=== PATIENT | female | born 1975 | race Caucasian/White ===

== ENCOUNTER → 2016-10-27 | Outpatient (REF) | payer BC ==
[2016-10-27 11:53] LABS: BASO % 0.5 % (0.0-1.0); EOS # 0.1 K/mm3 (0.0-0.50); EOS % 1.4 % (0.0-3.0); LARGE UNSTAINED CELL # 0.1 K/mm3 (0.0-0.4); LARGE UNSTAINED CELL % 1.4 % (0.0-4.0); LYMPH # 1.6 K/mm3 (1.5-4.5); LYMPH % 15.8 % (24.0-44.0); MEAN CORPUSCULAR HEMOGLOBIN 29.1 pg (27.0-33.0); MEAN CORPUSCULAR HGB CONC 34.4 g/dl (32.0-36.5); MEAN CORPUSCULAR VOLUME 84.4 fl (80.0-96.0); MONO # 0.5 K/mm3 (0.0-0.8); MONO % 5.2 % (0.0-5.0); NEUTROPHILS # 7.6 K/mm3 (1.8-7.7); NEUTROPHILS % 75.7 % (36.0-66.0); PLATELET COUNT, AUTOMATED 301 k/mm3 (150-450); RED CELL DISTRIBUTION WIDTH 13.3 % (11.5-14.5)
[2016-10-27 12:09] LABS: ALT/SGPT 14 U/L (12-78); ANION GAP 12 MEQ/L (8-16); AST/SGOT 9 U/L (15-37); BLOOD UREA NITROGEN 15 MG/DL (7-18); CALCIUM LEVEL 9.3 MG/DL (8.5-10.1); CARBON DIOXIDE LEVEL 25 MEQ/L (21-32); CHLORIDE LEVEL 104 MEQ/L (98-107); CREATININE FOR GFR 1.08 MG/DL (0.55-1.02); GLOMERULAR FILTRATION RATE > 60.0 (>60); GLUCOSE, FASTING 82 MG/DL (70-105); POTASSIUM SERUM 3.8 MEQ/L (3.5-5.1); SODIUM LEVEL 141 MEQ/L (136-145)
[2016-10-27 12:10] LABS: ALBUMIN 3.6 GM/DL (3.2-5.2); ALKALINE PHOSPHATASE 93 U/L (45-117); BILIRUBIN,TOTAL 0.4 MG/DL (0.2-1.0); FREE T4 1.21 NG/DL (0.76-1.46); MAGNESIUM LEVEL 2.3 MG/DL (1.8-2.4); TOTAL PROTEIN 7.6 GM/DL (6.4-8.2)
[2016-10-27 13:35] LABS: ERYTHROCYTE SEDIMENTATION RATE 73 mm/hr (0-20)
== END | disposition home or self-care (01) ==
LOC: M SFHCPLAZ 08:52
PROVIDERS: ATTEND Nurse Practitioner Family
DX: N61.0 Mastitis without abscess (principal); M79.7 Fibromyalgia; E03.9 Hypothyroidism, unspecified; K21.9 Gastro-esophageal reflux disease without esophagitis; E55.9 Vitamin D deficiency, unspecified

== ENCOUNTER → 2016-10-30 | Outpatient (CLI) | payer SELFPAY ==
[2016-10-30 14:41] LABS: BASO # 0.1 K/mm3 (0.0-0.2); BASO % 0.7 % (0.0-1.0); EOS % 0.1 % (0.0-3.0); LARGE UNSTAINED CELL # 0.1 K/mm3 (0.0-0.4); LARGE UNSTAINED CELL % 0.6 % (0.0-4.0); LYMPH # 1.5 K/mm3 (1.5-4.5); LYMPH % 10.4 % (24.0-44.0); MEAN CORPUSCULAR HEMOGLOBIN 28.4 pg (27.0-33.0); MEAN CORPUSCULAR HGB CONC 33.7 g/dl (32.0-36.5); MEAN CORPUSCULAR VOLUME 84.3 fl (80.0-96.0); MONO # 0.3 K/mm3 (0.0-0.8); MONO % 2.4 % (0.0-5.0); NEUTROPHILS # 11.8 K/mm3 (1.8-7.7); NEUTROPHILS % 85.7 % (36.0-66.0); PLATELET COUNT, AUTOMATED 382 k/mm3 (150-450); RED CELL DISTRIBUTION WIDTH 14.1 % (11.5-14.5); WHITE BLOOD COUNT 13.8 K/mm3 (4.0-10.0)
[2016-10-30 17:56] LABS: ERYTHROCYTE SEDIMENTATION RATE 44 mm/hr (0-20)
== END | disposition home or self-care (01) ==
LOC: M LAB 13:34
PROVIDERS: ATTEND Nurse Practitioner Family
DX: N61.0 Mastitis without abscess (principal)

== ENCOUNTER → 2016-10-30 | Outpatient (CLI) | payer BC, SELFPAY ==
--- NOTE | 2016-10-30 13:21 | REP ---
Digital diagnostic bilateral mammography with CAD and focused left breast sonography: History: Mastitis of the left breast. The patient reports that her pain and swelling are improving on antibiotic therapy. There is a past history of cyst drainage in the left breast. No comparison mammography. Findings: Breast parenchyma is heterogeneously quite dense in a pattern which may inhibit the sensitivity of mammography. Normal appearing lymph nodes are visible in each axilla. There is a dominant ill-defined density in the left superior mid breast at approximately 12 o'clock on the MLO view. This is seen with less confidence on the CC view but appears to be central. No skin change or microcalcification is observed. No definite mass lesion. Focused left breast sonogram findings: The left breast is examined in the 12 o'clock position. There is a 0.9 cm cyst at 12 o'clock with thin septation. Heterogeneous fibroglandular background echotexture is seen from 11 o'clock to 1 o'clock in the area scanned. Impression: BIRADS category 2 benign bilateral breast imaging. Repeat screening mammography recommended in 1 year. Clinical follow-up for patient's symptoms advised. This negative report should not dissuade one from biopsy of a mass depending on its clinical characteristics on physical exam. BI-RADS/ACR category 2 mammogram. Benign finding(s). Routine annual screening mammography (for women over age 40). This mammogram was interpreted with the aid of an FDA-approved computer-aided detection system. The patient states she had a clinical breast exam in October 2016. The patient letter being requested is M2. Signed by Bryson Rosales MD 10/30/2016 02:42 P
== END | disposition home or self-care (01) ==
LOC: M RAD 10:47
PROVIDERS: ATTEND Nurse Practitioner Family
DX: N61.0 Mastitis without abscess (principal)
CPT/HCPCS: 76642; G0204

== ENCOUNTER → 2016-11-17 | Outpatient (CLI) | payer BC ==
[2016-11-17 18:22] LABS: ANION GAP 9 MEQ/L (8-16); BLOOD UREA NITROGEN 12 MG/DL (7-18); CALCIUM LEVEL 9.1 MG/DL (8.5-10.1); CARBON DIOXIDE LEVEL 26 MEQ/L (21-32); CHLORIDE LEVEL 105 MEQ/L (98-107); CREATININE FOR GFR 0.98 MG/DL (0.55-1.02); GLOMERULAR FILTRATION RATE > 60.0 (>60); GLUCOSE, FASTING 78 MG/DL (70-105); POTASSIUM SERUM 4.1 MEQ/L (3.5-5.1); SODIUM LEVEL 140 MEQ/L (136-145)
[2016-11-17 18:39] LABS: BASO % 0.1 % (0.0-1.0); EOS # 0.2 K/mm3 (0.0-0.50); EOS % 2.6 % (0.0-3.0); LARGE UNSTAINED CELL # 0.1 K/mm3 (0.0-0.4); LARGE UNSTAINED CELL % 1.9 % (0.0-4.0); LYMPH # 1.7 K/mm3 (1.5-4.5); LYMPH % 24.2 % (24.0-44.0); MEAN CORPUSCULAR HEMOGLOBIN 27.9 pg (27.0-33.0); MEAN CORPUSCULAR HGB CONC 33.2 g/dl (32.0-36.5); MONO # 0.3 K/mm3 (0.0-0.8); MONO % 5.1 % (0.0-5.0); NEUTROPHILS # 4.4 K/mm3 (1.8-7.7); NEUTROPHILS % 66.2 % (36.0-66.0); PLATELET COUNT, AUTOMATED 227 k/mm3 (150-450); RED CELL DISTRIBUTION WIDTH 13.9 % (11.5-14.5); WHITE BLOOD COUNT 6.6 K/mm3 (4.0-10.0)
--- NOTE | 2016-11-17 18:52 | REP ---
PA and lateral chest: Comparison is 02/13/2011. The lung gonzalez are clear. The cardiac size is normal The baljit, mediastinum, and bony thorax are unremarkable. Impression: Negative PA and lateral chest. There is no interval Signed by Fausto Luke MD 11/17/2016 06:44 P
== END | disposition home or self-care (01) ==
LOC: M WUC 12:30
PROVIDERS: ATTEND Nurse Practitioner Family
DX: R05 Cough (principal)

== ENCOUNTER → 2017-08-20 | Outpatient (REF) | payer BC | LOC: M SFHCPLAZ 15:56 | PROVIDERS: ATTEND Nurse Practitioner Family | DX: M25.50 Pain in unspecified joint (principal) ==

== ENCOUNTER 2017-09-09 15:53 | Emergency (ER) | payer BC, OTHER ==
[~2017-09-09] VITALS: Ht 157.5 cm; Wt 118.6 kg
[2017-09-09 15:54] VITALS: BP 145/74
[2017-09-09] MEDS ORDERED: LEVO200T4 (16:13)
[2017-09-09] MEDS ORDERED: TYLE325T5 PO (16:13)
[2017-09-09] MEDS ORDERED: ADACEL/BOOSTRIX VACCINE (DIPHTH/PERTUSS/ACELL/TETANUS)0.5ML SYR (90715) IM ONE (17:30)
[2017-09-09] MEDS ORDERED: AUGM875T28 PO (18:08)
[2017-09-09 18:13] LABS: BASO % 0.3 % (0.0-1.0); EOS # 0.1 10^3/uL (0.0-0.50); EOS % 1.6 % (0.0-3.0); IMMATURE GRANULOCYTE % 0.3 % (0-0); LYMPH # 2.3 10^3/uL (1.5-4.5); LYMPH % 26.3 % (24.0-44.0); MEAN CORPUSCULAR HEMOGLOBIN 27.8 pg (27.0-33.0); MEAN CORPUSCULAR HGB CONC 32.2 g/dl (32.0-36.5); MEAN CORPUSCULAR VOLUME 86.4 fl (80.0-96.0); MONO # 0.6 10^3/uL (0.0-0.8); MONO % 7.1 % (0.0-5.0); NEUTROPHILS # 5.7 10^3/uL (1.8-7.7); NEUTROPHILS % 64.4 % (36.0-66.0); PLATELET COUNT, AUTOMATED 308 10^3/uL (150-450); RED CELL DISTRIBUTION WIDTH 13.8 % (11.5-14.5); WHITE BLOOD COUNT 8.9 10^3/uL (4.0-10.0)
[2017-09-09 18:29] LABS: CONTROL LINE HCG INT CTR LINE PRESENT
[2017-09-09 18:35] LABS: ALBUMIN 3.7 GM/DL (3.2-5.2); ALBUMIN/GLOBULIN RATIO 0.88 (1.00-1.93); ALKALINE PHOSPHATASE 80 U/L (45-117); ALT/SGPT 18 U/L (12-78); ANION GAP 7 MEQ/L (8-16); AST/SGOT 10 U/L (7-37); BILIRUBIN,TOTAL 0.2 MG/DL (0.2-1.0); BLOOD UREA NITROGEN 20 MG/DL (7-18); CALCIUM LEVEL 9.2 MG/DL (8.5-10.1); CARBON DIOXIDE LEVEL 26 MEQ/L (21-32); CHLORIDE LEVEL 106 MEQ/L (98-107); CREATININE FOR GFR 0.93 MG/DL (0.55-1.02); GLOMERULAR FILTRATION RATE > 60.0 (>58); GLUCOSE, FASTING 73 MG/DL (70-105); POTASSIUM SERUM 4.1 MEQ/L (3.5-5.1); SODIUM LEVEL 139 MEQ/L (136-145); TOTAL PROTEIN 7.9 GM/DL (6.4-8.2)
[2017-09-09 18:48] LABS: CONTROL LINE INT CTR LINE PRESENT
[2017-09-10 10:10] LABS: HEPATITIS B SURFACE ANTIBODY POSITIVE (POSITIVE)
== END 2017-09-09 18:41 | disposition home or self-care (01) ==
LOC: M ED 15:53
DX: S41.032A Puncture wound without foreign body of left shoulder, initial encounter (principal); Y04.1XXA Assault by human bite, initial encounter; Y92.219 Unspecified school as the place of occurrence of the external cause; Y93.89 Activity, other specified; Y99.0 Civilian activity done for income or pay; E03.9 Hypothyroidism, unspecified; Z79.899 Other long term (current) drug therapy; Z87.891 Personal history of nicotine dependence

== ENCOUNTER → 2017-12-14 | Outpatient (REF) | payer OTHER | LOC: M SFHCPLAZ 16:17 | DX: E03.9 Hypothyroidism, unspecified (principal); E55.9 Vitamin D deficiency, unspecified ==

== ENCOUNTER → 2017-12-22 | Outpatient (REF) | payer SELFPAY, BC ==
[2017-12-22 17:42] LABS: TOTAL 25(OH) VITAMIN D 23.8 NG/ML (30.0-100.0)
[2017-12-22 17:44] LABS: FREE T4 1.07 NG/DL (0.76-1.46)
== END ==
LOC: M LABNEURO 15:17
DX: E03.9 Hypothyroidism, unspecified (principal); E55.9 Vitamin D deficiency, unspecified
CPT/HCPCS: 84443

== ENCOUNTER → 2018-07-01 | Outpatient (REF) | payer BC | LOC: M SFHCPLAZ 17:08 | DX: N39.0 Urinary tract infection, site not specified (principal); R30.0 Dysuria | CPT/HCPCS: 87086 ==

== ENCOUNTER 2018-07-22 17:26 | Emergency (ER) | payer BC ==
[2018-07-22] MEDS: ASPIRIN 81 MG CHEW TABLET PO (18:29)
[2018-07-22] MEDS: NITROGLYCERIN 0.4 MG SUBL TABLET SL (18:29)
[2018-07-22 18:50] LABS: BASO % 0.4 % (0.0-1.0); EOS # 0.2 10^3/uL (0.0-0.50); HEMATOCRIT 38.6 % (36.0-47.0); HEMOGLOBIN 12.7 g/dl (12.0-15.5); IMMATURE GRANULOCYTE % 0.6 % (0-3.0); LYMPH # 2.5 10^3/uL (1.5-4.5); LYMPH % 23.6 % (24.0-44.0); MEAN CORPUSCULAR HEMOGLOBIN 27.8 pg (27.0-33.0); MEAN CORPUSCULAR HGB CONC 32.9 g/dl (32.0-36.5); MEAN CORPUSCULAR VOLUME 84.5 fl (80.0-96.0); MONO # 0.7 10^3/uL (0.0-0.8); MONO % 6.2 % (0.0-5.0); NEUTROPHILS # 7.2 10^3/uL (1.8-7.7); NEUTROPHILS % 67.2 % (36.0-66.0); PLATELET COUNT, AUTOMATED 276 10^3/uL (150-450); RED BLOOD COUNT 4.57 10^6/uL (4.00-5.40); RED CELL DISTRIBUTION WIDTH 14.2 % (11.5-14.5); WHITE BLOOD COUNT 10.7 10^3/uL (4.0-10.0)
[2018-07-22 19:02] LABS: PROTHROMBIN TIME 12.2 SECONDS (12.1-14.4)
[2018-07-22 19:20] LABS: ALBUMIN 3.6 GM/DL (3.2-5.2); ALBUMIN/GLOBULIN RATIO 0.97 (1.00-1.93); ALKALINE PHOSPHATASE 77 U/L (45-117); ALT/SGPT 16 U/L (12-78); ANION GAP 10 MEQ/L (8-16); AST/SGOT 11 U/L (7-37); BILIRUBIN,DIRECT < 0.1 MG/DL (0.0-0.2); BILIRUBIN,TOTAL 0.3 MG/DL (0.2-1.0); BLOOD UREA NITROGEN 18 MG/DL (7-18); CALCIUM LEVEL 9.1 MG/DL (8.5-10.1); CARBON DIOXIDE LEVEL 25 MEQ/L (21-32); CHLORIDE LEVEL 105 MEQ/L (98-107); CPK CREATINE PHOSPHOKINASE 109 U/L (26-192); CREATININE FOR GFR 1.08 MG/DL (0.55-1.30); GLOMERULAR FILTRATION RATE 59.5 (>58); GLUCOSE, FASTING 74 MG/DL (70-100); LIPASE 123 U/L (73-393); MB/CK RELATIVE INDEX 1.01 (< OR =4); POTASSIUM SERUM 3.8 MEQ/L (3.5-5.1); SODIUM LEVEL 140 MEQ/L (136-145); TOTAL PROTEIN 7.3 GM/DL (6.4-8.2); TROPONIN I < 0.02 NG/ML (< 0.10)
== END 2018-07-22 20:57 | disposition home or self-care (01) ==
LOC: M ED 17:26
DX: K21.0 Gastro-esophageal reflux disease with esophagitis (principal); E07.9 Disorder of thyroid, unspecified; Z79.899 Other long term (current) drug therapy
CPT/HCPCS: 71045

== ENCOUNTER 2018-08-24 10:34 | Emergency (ER) | payer BC | END 2018-08-24 12:51 | disposition home or self-care (01) | LOC: M ED 10:34 | DX: M54.42 Lumbago with sciatica, left side (principal); M51.37 Other intervertebral disc degeneration, lumbosacral region; M79.7 Fibromyalgia; Z87.891 Personal history of nicotine dependence; Z79.890 Hormone replacement therapy; Z79.899 Other long term (current) drug therapy | CPT/HCPCS: 72110 ==

== ENCOUNTER → 2018-09-14 | Outpatient (REF) | payer BC ==
[2018-09-14 13:09] LABS: FREE T4 1.65 NG/DL (0.76-1.46); THYROID STIMULATING HORMONE 0.265 uIU/ML (0.358-3.740); TOTAL 25(OH) VITAMIN D 34.5 NG/ML (30.0-100.0)
== END ==
LOC: M SFHCPLAZ 10:58
DX: E03.9 Hypothyroidism, unspecified (principal); E55.9 Vitamin D deficiency, unspecified

== ENCOUNTER → 2018-11-21 | Outpatient (REF) | payer BC ==
[~2018-11-21] MED LIST: AUGM875T28 PO; LEVO200T4; LEVO25TA5 PO; PROT1TAB2 PO; ROBA500T PO; TYLE325T5 PO
[2018-11-21 19:20] LABS: FREE T4 1.21 NG/DL (0.76-1.46); THYROID STIMULATING HORMONE 1.53 uIU/ML (0.358-3.740)
== END ==
LOC: M SFHCPLAZ 13:31
PROVIDERS: ATTEND Nurse Practitioner Family
DX: E03.9 Hypothyroidism, unspecified (principal)

== ENCOUNTER → 2019-11-10 | Outpatient (REF) | payer BC ==
[2019-11-10 12:35] LABS: FREE T4 1.92 NG/DL (0.76-1.46); THYROID STIMULATING HORMONE 0.032 uIU/ML (0.358-3.740)
== END ==
LOC: M SFHCPLAZ 10:08
PROVIDERS: ATTEND Nurse Practitioner Family
DX: E03.9 Hypothyroidism, unspecified (principal)

== ENCOUNTER → 2019-12-04 | Outpatient (REF) | payer BC ==
[2019-12-04 18:31] LABS: FREE T4 1.44 NG/DL (0.76-1.46); THYROID STIMULATING HORMONE 0.099 uIU/ML (0.358-3.740)
== END ==
LOC: M LABNEURO 13:07
PROVIDERS: ATTEND Nurse Practitioner Family
DX: E03.9 Hypothyroidism, unspecified (principal)

== ENCOUNTER → 2020-01-09 | Outpatient (REF) | payer OTHER ==
[2020-01-09 14:33] LABS: BLOOD UREA NITROGEN 12 MG/DL (7-18); CALCIUM LEVEL 9.2 MG/DL (8.5-10.1); CARBON DIOXIDE LEVEL 30 MEQ/L (21-32); CHLORIDE LEVEL 104 MEQ/L (98-107); CREATININE FOR GFR 0.93 MG/DL (0.55-1.30); FREE T4 1.44 NG/DL (0.76-1.46); GLOMERULAR FILTRATION RATE > 60.0 (>58); GLUCOSE, FASTING 83 MG/DL (70-100); POTASSIUM SERUM 4.3 MEQ/L (3.5-5.1); SODIUM LEVEL 137 MEQ/L (136-145); TOTAL 25(OH) VITAMIN D 22.2 NG/ML (30.0-100.0)
== END ==
LOC: M SFHCPLAZ 11:14
PROVIDERS: ATTEND Nurse Practitioner Family
DX: E03.9 Hypothyroidism, unspecified (principal); E66.01 Morbid (severe) obesity due to excess calories; E55.9 Vitamin D deficiency, unspecified

== ENCOUNTER → 2020-02-12 | Outpatient (REF) | payer MEDICAID ==
[2020-02-12 10:18] LABS: FREE T4 1.53 NG/DL (0.76-1.46); THYROID STIMULATING HORMONE 0.121 uIU/ML (0.358-3.740)
== END ==
LOC: M PLALAB 08:40
PROVIDERS: ATTEND Nurse Practitioner Family
DX: E03.9 Hypothyroidism, unspecified (principal)

== ENCOUNTER → 2020-08-14 | Outpatient (CLI) | payer MEDICAID, OTHER ==
[2020-08-14 14:15] LABS: BASO % 0.3 % (0.0-1.0); EOS # 0.2 10^3/uL (0.0-0.5); HEMOGLOBIN 13.4 g/dl (12.0-15.5); LYMPH # 1.9 10^3/uL (1.5-5.0); LYMPH % 19.5 % (24.0-44.0); MEAN CORPUSCULAR HEMOGLOBIN 27.8 pg (27.0-33.0); MEAN CORPUSCULAR HGB CONC 31.9 g/dl (32.0-36.5); MEAN CORPUSCULAR VOLUME 87.1 fl (80.0-96.0); MONO # 0.7 10^3/uL (0.0-0.8); MONO % 6.8 % (0.0-5.0); NEUTROPHILS % 70.9 % (36.0-66.0); PLATELET COUNT, AUTOMATED 314 10^3/uL (150-450); RED BLOOD COUNT 4.82 10^6/uL (4.00-5.40); WHITE BLOOD COUNT 9.9 10^3/uL (4.0-10.0)
[2020-08-14 14:27] LABS: BLOOD UREA NITROGEN 11 MG/DL (7-18); CALCIUM LEVEL 9.3 MG/DL (8.5-10.1); CARBON DIOXIDE LEVEL 27 MEQ/L (21-32); CHLORIDE LEVEL 106 MEQ/L (98-107); CREATININE FOR GFR 1.04 MG/DL (0.55-1.30); FREE T4 1.09 NG/DL (0.76-1.46); GLOMERULAR FILTRATION RATE > 60.0 (>58); GLUCOSE, FASTING 95 MG/DL (70-100); POTASSIUM SERUM 4.2 MEQ/L (3.5-5.1); SODIUM LEVEL 139 MEQ/L (136-145); TOTAL 25(OH) VITAMIN D 25.2 NG/ML (30.0-100.0)
[2020-08-14 14:31] LABS: AMORPHOUS SEDIMENT MODERATE (NEGATIVE); APPEARANCE, URINE TURBID (CLEAR); BACTERIA, URINE AUTO 1+ (NEGATIVE); BILIRUBIN, URINE AUTO NEGATIVE (NEGATIVE); BLOOD, URINE BLOOD 1+ (NEGATIVE); COLOR, URINE YELLOW (YELLOW); GLUCOSE, URINE (UA) AUTO NEGATIVE (NEGATIVE); KETONE, URINE AUTO NEGATIVE (NEGATIVE); LEUKOCYTE ESTERASE, URINE AUTO NEGATIVE (NEGATIVE); MUCUS, URINE SMALL (NEGATIVE); NITRITE, URINE AUTO NEGATIVE (NEGATIVE); PROTEIN, URINE AUTO NEGATIVE (NEGATIVE); RBC, URINE AUTO 0 /HPF (0-3); SPECIFIC GRAVITY URINE AUTO 1.024 (1.002-1.035); SQUAMOUS EPITHELIAL CELL UR AU 0 /HPF (0-6); WBC, URINE AUTO 0 /HPF (0-3)
== END ==
LOC: M PLALAB 10:08
PROVIDERS: ATTEND Nurse Practitioner Family
DX: J01.90 Acute sinusitis, unspecified (principal); R30.0 Dysuria; E03.9 Hypothyroidism, unspecified; E55.9 Vitamin D deficiency, unspecified

== ENCOUNTER → 2020-11-06 | Outpatient (REF) | payer OTHER ==
[~2020-11-06] MED LIST changes: +CETI-24; +IBUP200T45 PO; +LEVO150T7
[2020-11-06 18:01] LABS: HEMATOCRIT 37.9 % (36.0-47.0); HEMOGLOBIN 11.8 g/dl (12.0-15.5); MEAN CORPUSCULAR HEMOGLOBIN 27.2 pg (27.0-33.0); MEAN CORPUSCULAR HGB CONC 31.1 g/dl (32.0-36.5); MEAN CORPUSCULAR VOLUME 87.3 fl (80.0-96.0); PLATELET COUNT, AUTOMATED 299 10^3/uL (150-450); RED BLOOD COUNT 4.34 10^6/uL (4.00-5.40); WHITE BLOOD COUNT 10.5 10^3/uL (4.0-10.0)
[2020-11-06 18:02] LABS: BLOOD UREA NITROGEN 17 MG/DL (7-18); CALCIUM LEVEL 9.5 MG/DL (8.5-10.1); CARBON DIOXIDE LEVEL 29 MEQ/L (21-32); CHLORIDE LEVEL 106 MEQ/L (98-107); CREATININE FOR GFR 1.04 MG/DL (0.55-1.30); FERRITIN 38 NG/ML (8-252); FREE T4 1.06 NG/DL (0.76-1.46); GLOMERULAR FILTRATION RATE > 60.0 (>58); GLUCOSE, FASTING 70 MG/DL (70-100); POTASSIUM SERUM 4.2 MEQ/L (3.5-5.1); SODIUM LEVEL 141 MEQ/L (136-145)
== END ==
LOC: M PLALAB 15:23
PROVIDERS: ATTEND Nurse Practitioner Family
DX: N92.1 Excessive and frequent menstruation with irregular cycle (principal)

== ENCOUNTER 2020-11-07 17:02 | Emergency (ER) | payer OTHER ==
[~2020-11-07] VITALS: Ht 157.5 cm; Wt 133.1 kg
[~2020-11-07 17:02] MED LIST changes: -CETI-24; -IBUP200T45 PO; -LEVO150T7
--- OUTSIDE RECORDS SUMMARY | 2020-11-07 17:09 | CCD ---
Author Author [facility] Organization [facility] Address Unknown Phone Unavailable Care Team Providers Care Finish Rolls Operator Name Role Phone Nay Blum Unavailable PROBLEMS Type Condition ICD9-CM Code [id number] Code Onset Dates Condition S tatus SNOMED Code Notes Problem Obstructive sleep apnea G47.33 Active 39514741 Problem Gastroesophageal reflux disease without esophagitis K21.9 Active 821346852 Problem Periodic limb movement disorder G47.61 Active 610579530 Problem Malaise and fatigue R53.81 Active 892862749 Problem Mixed hyperlipidemia E78.2 Active 669725835 Problem Irritable bowel syndrome with both constipation and diarrh ea K58.0 Active 36405039 Problem Migraine without status migrainosus, not intractable G43.909 Active 99594233 Problem Other allergic rhinitis J30.89 Active 34903416 Problem Vitamin D deficiency E55.9 Active 52156475 Problem Fibromyalgia syndrome M79.7 Active 224441964 Problem Mild intermittent asthma with exacerbation J45.21 Active 133448024 Problem Acquired hypothyroidism E03.9 Active 61119219 2 Problem Stomach upset K30 Active 923227939 Problem Asthma J45.909 Active 862520231 Problem Morbid obesity with body mass index of 40.0-49.9 E 66.01 Active 034602972 Problem Gastroesophageal reflux disease, esophagitis pre sence not specified K21.9 Active 604382525 Problem Asthma exacerbation J45.901 Active 593875602 Problem Cyst of left breast N60.02 Active 643175956 ALLERGIES Allergen (clinical drug ingredient) Drug/Non Drug Allergy do cumented on EMR Reaction Allergy Type Onset Date Status kiwi, tea tongue swelling, itchy mouth Non Drug Allergy Active Bananas Bloating, severe abdominal pain Non Drug Allerg y Active ENCOUNTERS from 1977 to 2020-08-23 Encounter Location Date Provider Diagnosis [facility] Rene [address] [place] [id number] Aug, Nay Blum IMMUNIZATIONS Vaccine Route Administration Date Status Influenza (Denied) Unknown Oct 13, 2018 Others Influenza (18 yrs & older) Flublok IM Intramuscular Aug 14, 2020 Administered TDAP 0.5mL (Boostrix) IM Intramuscular February 16, 2013 Administe red Influenza (6mo & up) Fluzone IM Intramuscular Aug 19, 2011 Ad ministered SOCIAL HISTORY Tobacco Use: Social History Observation Description Date Details (start date - stop date) Never Smoker Sex Assigned At : Social History Observation Description Sex Assigned At Unknown Audit Question Answer Notes Total Score: 1 Interpretation: Alcohol Education Language: Question Answer Notes Languages spoken: Mongolian Advent: Question Answer Notes Advent 08 Confucianism Sexual Hx: Question Answer Notes Had sex in the last 12 months (vaginal, oral, or anal)? No LMP: 08/16/2017 Have you ever had an STD? Yes Other? Yes Chlamydia? Yes Drug and Alcohol Question Answer Notes Total Score: 0 Interpretation: No problems reported Alcohol Screening: Question Answer Notes Did you have a drink containing alcohol in the past year? Ye s Points 1 Interpretation Negative How often did you have six or more drinks on one occas ion in the past year? Never (0 points) How many drinks did you have on a typica l day when you were drinking in the past year? 1 or 2 (0 points) How often did you have a drink containing alcohol in t he past year? Monthly or less (1 point) BMI Care Goal Follow-Up Question Answer Notes Above Normal BMI Follow-Up Dietary management educatio n, guidance, and counseling, Giving encouragement to exercise Tobacco Use: Question Answer Notes Are you a: never smoker REASON FOR REFERRAL No Information VITAL SIGNS No information MEDICATIONS Medication SIG (Take, Route, Frequency, Duration) Start Date En d Date Status Nebulizer/Tubing/Mouthpiece 1 tubing for inhalation as needed 2009 Active Nebulizer 1 1 for inhalation as needed Sep, N ot-Taking Amoxicillin-Pot Clavulanate 875-125 MG 1 tablet Orally every 12 hrs for 10 day(s) Jan, Active Cetirizine HCl 10 MG 1 tablet Orally Once a day for 30 Days Active Albuterol Sulfate (2.5 MG/3ML) 0.083% nebs Inhalation every 4 hrs as needed for 30 Days Sep, Active Levothyroxine Sodium 150 MCG 1 tablet in the morning o n an empty stomach Orally Once a day for 90 day(s) February, Active Fluconazole 150 MG 1 tablet Orally Daily as needed for 2 days 2019 Active Ibuprofen 600 MG 1 tablet with food Orally Three times a day as needed for pain May, Active Ventolin HFA 108 (90 Base) MCG/ACT 2 puffs Inhalation every 4 hours as needed for 30 Days Active Drisdol 38924 UNIT 1 capsule Orally once a week with a meal for 90 days Active Calcium 600 + D 600-400 MG-UNIT 1 tablet Orally daily Not-Taking Flonase 50 MCG/ACT 1 -2 puffs in each nostril Nasally Once a day for 30 Days Active PROCEDURES No Information RESULTS No Results REASON FOR VISIT no improvement MEDICAL (GENERAL) HISTORY Type Description Date Medical History asthma Medical History allergies Medical History Hypothyroidism Medical History goiter Medical History Esophageal reflux Medical History sinusitis Medical History migraine headaches Medical History sleep apnea - CPAP per pulmonary Medical History Plantar fascial fibromatosis Surgical History mole removal left breast Surgical History colposcopy with biopsies Pos HPV 07/13 Goals Section No Information Health Concerns No Information MEDICAL EQUIPMENT No Information MENTAL STATUS No Information FUNCTIONAL STATUS No Information ASSESSMENTS No Information PLAN OF TREATMENT Next Appt Details Provider Name:Marianela Loja 2020-09-12 03:3 0:00 PM, [address] [place], [address], Insurance Providers Payer Name Payer Address Payer Phone Insured Name Patient Relati onship to Insured Coverage Start Date Coverage End Date [facility] [facility] [place] [address] [facility] [phone] NAYELY BURNETTE self
--- OUTSIDE RECORDS SUMMARY | 2020-11-07 17:09 | CCD ---
Author Author [facility] Organization [facility] Address Unknown Phone Unavailable Care Team Providers Care Rig Hand Name Role Phone Nay Blum Unavailable PROBLEMS Type Condition ICD9-CM Code [id number] Code Onset Dates Condition S tatus SNOMED Code Notes Problem Obstructive sleep apnea G47.33 Active 65049812 Problem Gastroesophageal reflux disease without esophagitis K21.9 Active 687436811 Problem Periodic limb movement disorder G47.61 Active 043504009 Problem Malaise and fatigue R53.81 Active 206891643 Problem Mixed hyperlipidemia E78.2 Active 661953886 Problem Irritable bowel syndrome with both constipation and diarrh ea K58.0 Active 59143783 Problem Migraine without status migrainosus, not intractable G43.909 Active 56311028 Problem Other allergic rhinitis J30.89 Active 84927644 Problem Vitamin D deficiency E55.9 Active 84776023 Problem Fibromyalgia syndrome M79.7 Active 897903128 Problem Mild intermittent asthma with exacerbation J45.21 Active 736329063 Problem Acquired hypothyroidism E03.9 Active 37786685 2 Problem Stomach upset K30 Active 250808848 Problem Asthma J45.909 Active 236003533 Problem Morbid obesity with body mass index of 40.0-49.9 E 66.01 Active 465953899 Problem Gastroesophageal reflux disease, esophagitis pre sence not specified K21.9 Active 261513525 Problem Asthma exacerbation J45.901 Active 510251080 Problem Cyst of left breast N60.02 Active 460849567 ALLERGIES Allergen (clinical drug ingredient) Drug/Non Drug Allergy do cumented on EMR Reaction Allergy Type Onset Date Status kiwi, tea tongue swelling, itchy mouth Non Drug Allergy Active Bananas Bloating, severe abdominal pain Non Drug Allerg y Active ENCOUNTERS from 1977 to 2020-09-10 Encounter Location Date Provider Diagnosis [facility] Rene [facility] [place] [address] Aug, Nay Blum Acute sinusitis, recurrence not specifie d, unspecified location J01.90 and Stomach upset K30 IMMUNIZATIONS Vaccine Route Administration Date Status Influenza [...] Education Language: Question Answer Notes Languages spoken: Telugu Sikhism: Question Answer Notes Sikhism 08 Scientologist Sexual Hx: Question Answer Notes Had sex [...] REASON FOR REFERRAL No Information VITAL SIGNS Weight 289 lbs Aug, Height 62 in Aug, BMI 52.85 kg/m2 Aug, Heart Rate 87 /min Aug, Respiratory Rate 18 /min Aug, Temperature 97.5 degrees Fahrenheit Aug, Oximetry 99 Aug, Blood pressure systolic 129 mm Hg Aug, Blood pressure diastolic 76 mm Hg Aug, MEDICATIONS Medication SIG (Take, Route, Frequency, Duration) Notes Start Da te End Date Status Nebulizer/Tubing/Mouthpiece 1 tubing for inhalation as needed Sep, Active Nebulizer 1 1 for inhalation as needed Sep, Not-Taking Amoxicillin-Pot Clavulanate 875-125 MG 1 tablet Orally [...] Orally Daily as needed for 2 days Jan, Active Ibuprofen 600 MG 1 tablet with food Orally Three times a day as needed for pain May, Active Ventolin HFA 108 (90 Base) MCG/ACT 2 puffs Inhalation every 4 hours as needed for 30 Days Active Drisdol 56235 UNIT 1 capsule Orally once a week with a meal for 90 d ays Active Calcium 600 + D 600-400 MG-UNIT 1 tablet Orally daily Not-Taking Flonase 50 MCG/ACT 1 -2 puffs in each nostril Nasally Once a day for 30 Days Active PROCEDURES No Information RESULTS No Results REASON FOR VISIT No Information MEDICAL (GENERAL) HISTORY Type Description Date Medical [...] No Information FUNCTIONAL STATUS No Information ASSESSMENTS Encounter Date Diagnosis Assessment Notes Treatment Notes Treatm ent Clinical Notes Aug, Acute sinusitis, recurrence not specified, unspecified location (ICD-10 - J01.90) sinusitis; improving Stomach upset likely antibiotic related. Monitor, mild diet, yogurt. Pt will call next week if sxs worsen/persist Aug, Stomach upset (ICD-10 - K30) PLAN OF TREATMENT Treatment Notes Assessment Notes Clinical Notes Acute sinusitis, recurrence not specified, unspecified location sinusitis; improvingStomach upset likely antibiotic related.Monitor, mild diet, yogurt.Pt will call next week if sxs worsen/persist Next Appt Details Provider Name:Marianela Loja, 2020-09-12 03:3 0:00 PM, [address] [place], [address], Insurance Providers Payer Name Payer Address Payer Phone Insured Name Patient Relati onship to Insured Coverage Start Date Coverage End Date [facility]AN [facility] [address] [facility] [phone] NAYELY BURNETTE self
--- OUTSIDE RECORDS SUMMARY | 2020-11-07 17:10 | CCD ---
Author Author [facility] Organization [facility] Address Unknown Phone Unavailable Care Team Providers Care Head Mechanic Name Role Phone Marianela Loja Unavailable PROBLEMS Type Condition ICD9-CM Code [id number] Code Onset Dates Condition S tatus SNOMED Code Notes Problem Periodic limb movement disorder G47.61 Active 436737138 Problem Obstructive sleep apnea G47.33 Active 52145498 Problem Mixed hyperlipidemia E78.2 Active 464136433 Problem Gastroesophageal reflux disease without esophagitis K21.9 Active 795768329 Problem Migraine without status migrainosus, not intractable G43.909 Active 96004533 Problem Malaise and fatigue R53.81 Active 767806293 Problem Acquired hypothyroidism E03.9 Active 67278307 2 Problem Other allergic rhinitis J30.89 Active 02833095 Problem Vitamin D deficiency E55.9 Active 06480658 Problem Cyst of left breast N60.02 Active 243948498 Problem Asthma J45.909 Active 244856452 Problem Mild intermittent asthma with exacerbation J45.21 Active 754053063 Problem Irritable bowel syndrome with both constipation and diarrh ea K58.0 Active 24248335 Problem Fibromyalgia syndrome M79.7 Active 139832809 Problem Morbid obesity with body mass index of 40.0-49.9 E 66.01 Active 125916478 Problem Gastroesophageal reflux disease, esophagitis pre sence not specified K21.9 Active 514436093 Problem Asthma exacerbation J45.901 Active 663505854 ALLERGIES Allergen (clinical drug ingredient) Drug/Non Drug Allergy do cumented on EMR Reaction Allergy Type Onset Date Status kiwi, tea tongue swelling, itchy mouth Non Drug Allergy Active Bananas Bloating, severe abdominal pain Non Drug Allerg y Active ENCOUNTERS from 1977 to 2020-08-19 Encounter Location Date Provider Diagnosis [facility] Rene [facility] [place] [address] Aug, 020 Marianela Loja Acute non-recurrent sinusitis, unspecified location J01.90 ; Mild intermittent asthma with exacerbation J45.21 ; Other allergic rhinitis J30.89 ; Dysuria R30.0 ; Acquired hypothyroidism E03.9 ; Vitamin D deficiency E55.9 and Encounter for immunization Z23 IMMUNIZATIONS Vaccine Route Administration Date Status Influenza [...] Education Language: Question Answer Notes Languages spoken: Fijian Anglican: Question Answer Notes Anglican 08 Tenriism Sexual Hx: Question Answer Notes Had sex [...] FOR REFERRAL No Information VITAL SIGNS Weight 292 lbs Aug, Height 62 in Aug, BMI 53.40 kg/m2 Aug, Heart Rate 88 /min Aug, Respiratory Rate 20 /min Aug, Temperature 97.2 degrees Fahrenheit Aug, Oximetry 97 04 Aug, 2020 Blood pressure systolic 140 mm Hg Aug, Blood pressure diastolic 80 mm Hg Aug, MEDICATIONS Medication SIG (Take, Route, Frequency, Duration) Start Date En d Date Status Flonase 50 MCG/ACT 1 -2 puffs in each nostril Nasally Once a day for 30 Days Active Fluconazole 150 MG 1 tablet Orally Daily as needed for 2 days 2019 Active Levothyroxine Sodium 150 MCG 1 tablet in the morning o n an empty stomach Orally Once a day for 90 day(s) February, Active Drisdol 20086 UNIT 1 capsule Orally once a week with a meal for 90 days Active Ibuprofen 600 MG 1 tablet with food Orally Three times a day as needed for pain May, Active Nebulizer/Tubing/Mouthpiece 1 tubing for inhalation as needed 2009 Active Nebulizer 1 1 for inhalation as needed Sep, N ot-Taking Amoxicillin-Pot Clavulanate 875-125 MG 1 tablet Orally every 12 hrs for 10 day(s) Jan, Active Albuterol Sulfate (2.5 MG/3ML) 0.083% nebs Inhalation every 4 hrs as needed for 30 Days Sep, Active Cetirizine HCl 10 MG 1 tablet Orally Once a day for 30 Days Active Ventolin HFA 108 (90 Base) MCG/ACT 2 puffs Inhalation every 4 hours as needed for 30 Days Active Calcium 600 + D 600-400 MG-UNIT 1 tablet Orally daily Not-Taking PROCEDURES Procedure Date Ordered Result Body Site Immunization: Flublok Quadrivalent (18 years & older) 0.5mL IM (Influenza) 2020-08-14 N/A RESULTS REASON FOR VISIT follow up/flu shot - no labs done MEDICAL (GENERAL) HISTORY Type Description Date Medical [...] STATUS No Information ASSESSMENTS Encounter Date Diagnosis Notes Aug, Encounter for immunization (ICD-10 - Z23 ) Aug, Dysuria (ICD-10 - R30.0) Aug, Vitamin D deficiency (ICD-10 - E55.9) Aug, Acquired hypothyroidism (ICD-10 - E03.9) Aug, Acute non-recurrent sinusiti s, unspecified location (ICD-10 - J01.90) Aug, Other allergic rhinitis (ICD-10 - J30.89 ) Aug, Mild intermittent asthma with exacerbati on (ICD-10 - J45.21) PLAN OF TREATMENT Medication Medication Name Sig Start Date Stop Date Flonase 50 MCG/ACT 1 -2 puffs in each nostril Nasally Once a day for 30 Days Cetirizine HCl 10 MG 1 tablet Orally Once a day for 30 Days Ventolin HFA 108 (90 Base) MCG/ACT 2 puffs Inhalation every 4 hours as needed for 30 Days Amoxicillin-Pot Clavulanate 875-125 MG 1 tablet Orally every 12 hrs for 10 day(s) Jan, Fluconazole 150 MG 1 tablet Orally Daily as needed for 2 days Jan, Treatment Notes Assessment Notes Clinical Notes Acute non-recurrent sinusitis, unspecified location *Advised and Educated on administration and side effects of meds prescribed and patient verbalized understanding of the same., supportive measures for symptom relief, follow up if symptoms worsen or not improved with treatment. Off work note until 08/19/20 Next Appt Details 4 Weeks(30min) Reason:f/u after labs Provider Name:Marianela Loja 2020-09-12 03:3 0:00 PM, [address] [place], [address], Follow Up:4 Weeks(30min)f/u after labs Insurance Providers Payer Name Payer Address Payer Phone Insured Name Patient Relati onship to Insured Coverage Start Date Coverage End Date [facility] [address] [facility] [id number] NAYELY BURNETTE self
--- OUTSIDE RECORDS SUMMARY | 2020-11-07 17:10 | CCD ---
Author Author [facility] Address Unknown Phone Unavailable Support Name Relationship Address Phone [facility] Next Of Kin [address] [place] [address] HEATH LANG Next Of Kin [address] [place] [address] Heath Lang [facility] [address] [phone] Re-disclosure Warning The records that you are about to access may contain information from federally-assisted alcohol or drug abuse programs. If such information is present, then the following federally mandated warning applies: This information has been disclosed to you from records protected by federal confidentiality rules (42 CFR part 2). The federal rules prohibit you from making any further disclosure of this information unless further disclosure is expressly permitted by the written consent of the person to whom it pertains or as otherwise permitted by 42 CFR part 2. A general authorization for the release of medical or other information is NOT sufficient for this purpose. The Federal rules restrict any use of the information to criminally investigate or prosecute any alcohol or drug abuse patient.The records that you are about to access may contain highly sensitive health information, the redisclosure of which is protected by Article 27-F of the [facility] Public Health law. If you continue you may have access to information: Regarding HIV / AIDS; Provided by facilities licensed or operated by the [facility] Office of Mental Health; or Provided by the [facility] Office for People With Developmental Disabilities. If such information is present, then the following [facility] mandated warning applies: This information has been disclosed to you from confidential records which are protected by state law. State law prohibits you from making any further disclosure of this information without the specific written consent of the person to whom it pertains, or as otherwise permitted by law. Any unauthorized further disclosure in violation of state law may result in a fine or half-way sentence or both. A general authorization for the release of medical or other information is NOT sufficient authorization for further disc losure. Allergies and Adverse Reactions Type Description Substance Reaction Status Data Source(s ) kiwi, tea kiwi, tea kiwi, tea tongue swelling, itchy mouth Active eCW1 ([facility]) Bananas Bananas Bananas Bloating, severe abdominal pain Act geena eCW1 ([facility]) kiwi, tea kiwi, tea kiwi, tea tongue swelling, itchy mouth Active eCW1 ([facility]) Bananas Bananas Bananas Bloating, severe abdominal pain Act geena eCW1 ([facility]) kiwi, tea kiwi, tea kiwi, tea tongue swelling, itchy mouth Active eCW1 ([facility]) Bananas Bananas Bananas Bloating, severe abdominal pain Act geena eCW1 ([facility]) kiwi, tea kiwi, tea kiwi, tea tongue swelling, itchy mouth Active eCW1 ([facility]) Bananas Bananas Bananas Bloating, severe abdominal pain Act geena eCW1 ([facility]) kiwi, tea kiwi, tea kiwi, tea tongue swelling, itchy mouth Active eCW1 ([facility]) Bananas Bananas Bananas Bloating, severe abdominal pain Act geena eCW1 ([facility]) Family History Family Member Name Family Member Gender Family Member Status Date o f Status Description Data Source(s) Unknown Unknown Problem MEDENT ([facility]) Unknown Female Diagnosis 08/05/2018 12:00:00 AM EDT NextGen ([facility]) Unknown Female Diagnosis 08/05/2018 12:00:00 AM EDT NextGen ([facility]) Unknown Female Diagnosis 08/05/2018 12:00:00 AM EDT NextGen ([facility]) Unknown Female Problem MEDENT ([facility] ) Unknown Female Problem MEDENT ([facility], ) Unknown Female Problem MEDENT ([facility], ) Unknown Female Problem MEDENT ([facility], ) Unknown Female Problem MEDENT ([facility], ) Encounters Encounter Providers Location Date Indications Data Source(s ) [place] [address] [facility] [address] 11/05/2020 12:00:00 AM EST eCW1 ([facility]) [place] [address] [facility] [address] 08/23/2020 12:00:00 AM EST eCW1 ([facility]) Unknown [address] [facility] [address] 08/21/2020 12:00:00 AM EST eCW1 ([facility]) [place]patient [address] [facility] [address] 08/14/2020 12:00:00 AM EST eCW1 ([facility]) [facility] [address] [place] [address], [place] [address] 04/22/2020 12:00:00 AM EDT eCW1 ([facility]) [facility] [address] [place] [address], [place] [address] 02/14/2020 12:00:00 AM EDT eCW1 ([facility]) [facility] [address] [place] [address], [place] [address] 01/19/2020 12:00:00 AM EDT eCW1 ([facility]) [facility] [address] [place] [address], [place] [address] 01/19/2020 12:00:00 AM EDT eCW1 ([facility]) [facility] [address] [place] [address], [place] [address] 01/09/2020 12:00:00 AM EDT eCW1 ([facility]) [address] [place] [address] 12/14/2019 12:00:00 AM EST [facility]CW1 [facility]) [facility] [address] [place] [address] [place] [address] 11/13/2019 12:00:00 AM EST eCW1 ([facility]) [facility] [place] [address] [facility] [address] 11/10/2019 12:00:00 AM EST eCW1 ([facility]) Immunizations Vaccine Date Status Description Data Source(s) influenza, recombinant, quadrIvalent,injectable, prese rvative free 08/14/2020 12:00:00 PM EST completed eCW1 ([facility]) influenza, recombinant, quadrIvalent,injectable, prese rvative free 08/14/2020 12:00:00 PM EST completed eCW1 ([facility]) influenza, recombinant, quadrIvalent,injectable, prese rvative free 08/14/2020 12:00:00 PM EST completed eCW1 ([facility]) influenza, recombinant, quadrIvalent,injectable, prese rvative free 08/14/2020 12:00:00 PM EST completed eCW1 ([facility]) Medications Medication Brand Name Start Date Product Form Dose Route Admi nistrative Instructions Pharmacy Instructions Status Indications Reaction Description Data Source(s) 150 mcg 09/19/2020 12:00:00 AM EST tablet 90 TAKE ONE TABLET BY MOUTH EVERY MORNING ON AN EMTPY STOMACH TAKE ONE TABLET BY MOUTH EVERY MORNING O N AN EMTPY STOMACH SOLD: 09/19/2020 [facility] 10 mg 08/14/2020 12:00:00 AM EST tablet 30 TAKE ONE TABLET BY MOUTH ONCE DAILY TAKE ONE TABLET BY MOUTH ONCE DAILY SOLD: 10/01/2020 [facility] 10 mg 08/14/2020 12:00:00 AM EST tablet 30 TAKE ONE TABLET BY MOUTH ONCE DAILY TAKE ONE TABLET BY MOUTH ONCE DAILY SOLD: 11/01/2020 [facility] Levothyroxine Sodium 0.15 MG Oral Tablet Levothyroxine Sodium 150 MCG Levothyroxine Sodium 150 MCG 02/14/2020 12:00:00 AM EDT active Levothyroxine Sodium 150 MCG eCW1 ([facility]) Levothyroxine Sodium 0.15 MG Oral Tablet Levothyroxine Sodium 150 MCG Levothyroxine Sodium 150 MCG 02/14/2020 12:00:00 AM EDT active 1 tablet in the morning on an empty stomach eCW1 ([facility]) Levothyroxine Sodium 0.15 MG Oral Tablet Levothyroxine Sodium 150 MCG Levothyroxine Sodium 150 MCG 02/14/2020 12:00:00 AM EDT active Levothyroxine Sodium 150 MCG eCW1 ([facility]) Levothyroxine Sodium 0.15 MG Oral Tablet Levothyroxine Sodium 150 MCG Levothyroxine Sodium 150 MCG 02/14/2020 12:00:00 AM EDT active Levothyroxine Sodium 150 MCG eCW1 ([facility]) 150 mcg 02/14/2020 12:00:00 AM EDT tablet 90 TAKE ONE TABLET BY MOUTH EVERY MORNING ON AN EMPTY STOMACH TAKE ONE TABLET BY MOUTH EVERY MORNING O N AN EMPTY STOMACH SOLD: 05/31/2020 [facility] 1,250 mcg (50,000 unit) 02/14/2020 12:00:00 AM EDT capsule 12 TAKE ONE CAPSULE BY MOUTH ONCE A WEEK WITH A MEAL TAKE ONE CAPSULE BY MOUTH ONCE A WEEK WITH A MEAL SOLD: 02/14/2020 [facility] 150 mcg 02/14/2020 12:00:00 AM EDT tablet 90 TAKE ONE TABLET BY MOUTH EVERY MORNING ON AN EMPTY STOMACH TAKE ONE TABLET BY MOUTH EVERY MORNING O N AN EMPTY STOMACH SOLD: 02/14/2020 [facility] 90 mcg/actuation 02/14/2020 12:00:00 AM EDT HFA aerosol inha ler 18 INHALE 2 PUFFS BY MOUTH EVERY 4 HOURS NEEDED INHALE 2 PUFFS BY MOUTH EVERY 4 HOURS NEEDED SOLD: 02/14/2020 [facility] Amoxicillin 875 MG / Clavulanate 125 MG Oral Tablet Amoxicillin-Pot Clavulanate 875-125 MG Amoxicillin-Pot Clavulanate 875-125 MG 01/19/2020 12:00:00 AM ED T 1.0 {tablet} active Amoxicillin-Pot Cla vulanate 875-125 MG eCW1 ([facility]) Fluconazole 150 MG Oral Tablet Fluconazole 150 MG 01/19/2020 12:00: 00 AM EDT 1.0 {tablet} active Fluconazole 150 MG eCW1 ([facility]) Fluconazole 150 MG Oral Tablet Fluconazole 150 MG 01/19/2020 12:00: 00 AM EDT 1.0 {tablet} active Fluconazole 150 MG eCW1 ([facility]) Amoxicillin 875 MG / Clavulanate 125 MG Oral Tablet Amoxicillin-Pot Clavulanate 875-125 MG Amoxicillin-Pot Clavulanate 875-125 MG 01/19/2020 12:00:00 AM ED T 1.0 {tablet} active Amoxicillin-Pot Cla vulanate 875-125 MG eCW1 ([facility]) Amoxicillin 875 MG / Clavulanate 125 MG Oral Tablet Amoxicillin-Pot Clavulanate 875-125 MG Amoxicillin-Pot Clavulanate 875-125 MG 01/19/2020 12:00:00 AM ED T 1.0 {tablet} active Amoxicillin-Pot Cla vulanate 875-125 MG eCW1 ([facility]) 875-125 mg 01/19/2020 12:00:00 AM EDT tablet 20 TAKE 1 TABLET BY MOUTH EVERY 12 HOURS FOR 10 DAYS TAKE 1 TABLET BY MOUTH EVERY 12 HOURS FOR 10 DAYS SOLD : 01/19/2020 [facility] 150 mg 01/19/2020 12:00:00 AM EDT tablet 2 TAKE 1 TABLET BY MOUTH DAILY NEEDED TAKE 1 TABLET BY MOUTH DAILY NEEDED SOLD: 01/19/2020 [facility] Fluconazole 150 MG Oral Tablet Fluconazole 150 MG 01/19/2020 12:00: 00 AM EDT 1.0 {tablet} active Fluconazole 150 MG eCW1 ([facility]) Amoxicillin 875 MG / Clavulanate 125 MG Oral Tablet Amoxicillin-Pot Clavulanate 875-125 MG Amoxicillin-Pot Clavulanate 875-125 MG 01/19/2020 12:00:00 AM ED T suspended 1 tablet eCW1 ([facility]) Fluconazole 150 MG Oral Tablet Fluconazole 150 MG 01/19/2020 12:00: 00 AM EDT active 1 tablet eCW1 ([facility]) Fluconazole 150 MG Oral Tablet Fluconazole 150 MG 01/19/2020 12:00: 00 AM EDT 1.0 {tablet} active Fluconazole 150 MG eCW1 ([facility]) Amoxicillin 875 MG / Clavulanate 125 MG Oral Tablet Amoxicillin-Pot Clavulanate 875-125 MG Amoxicillin-Pot Clavulanate 875-125 MG 01/19/2020 12:00:00 AM ED T 1.0 {tablet} active Amoxicillin-Pot Cla vulanate 875-125 MG eCW1 ([facility]) Amoxicillin 875 MG / Clavulanate 125 MG Oral Tablet Amoxicillin-Pot Clavulanate 875-125 MG Amoxicillin-Pot Clavulanate 875-125 MG 01/19/2020 12:00:00 AM ED T active 1 tablet [facility] ([facility]) Fluconazole 150 MG Oral Tablet Fluconazole 150 MG 01/19/2020 12:00: 00 AM EDT suspended 1 tablet eCW1 ([facility]) 1,250 mcg (50,000 unit) 01/17/2020 12:00:00 AM EDT capsule 12 TAKE 1 CAPSULE BY MOUTH ONCE WEEKLY WITH A MEAL TAKE 1 CAPSULE BY MOUTH ONCE WEEKLY WITH A MEAL SOLD: 01/17/2020 [facility] 175 mcg 11/14/2019 12:00:00 AM EST tablet 30 TAKE 1 TABLET BY MOUTH IN THE MORNING ON AN EMPTY STOMACH TAKE 1 TABLET BY MOUTH IN THE MORNING ON AN EMPTY STOMACH SOLD: 11/15/2019 [facility] 175 mcg 11/14/2019 12:00:00 AM EST tablet 30 TAKE 1 TABLET BY MOUTH IN THE MORNING ON AN EMPTY STOMACH TAKE 1 TABLET BY MOUTH IN THE MORNING ON AN EMPTY STOMACH SOLD: 12/18/2019 [facility] 175 mcg 11/14/2019 12:00:00 AM EST tablet 30 TAKE 1 TABLET BY MOUTH IN THE MORNING ON AN EMPTY STOMACH TAKE 1 TABLET BY MOUTH IN THE MORNING ON AN EMPTY STOMACH SOLD: 01/18/2020 [facility] Levothyroxine Sodium 0.175 MG Oral Tablet Levothyroxin e Sodium 175 MCG Levothyroxine Sodium 175 MCG 11/13/2019 12:00:00 AM EST active 1 tablet in the morning on an empty stomach eCW1 ([facility]) Levothyroxine Sodium 0.175 MG Oral Tablet Levothyroxin e Sodium 175 MCG Levothyroxine Sodium 175 MCG 11/13/2019 12:00:00 AM EST active 1 tablet in the morning on an empty stomach [facility] ([facility]) Levothyroxine Sodium 0.175 MG Oral Tablet Levothyroxin e Sodium 175 MCG Levothyroxine Sodium 175 MCG 11/13/2019 12:00:00 AM EST active 1 tablet in the morning on an empty stomach eCW ([facility]) Levothyroxine Sodium 0.175 MG Oral Tablet Levothyroxin e Sodium 175 MCG Levothyroxine Sodium 175 MCG 11/13/2019 12:00:00 AM EST active 1 tablet in the morning on an empty stomach eCW1 ([facility]) Amoxicillin 875 MG / Clavulanate 125 MG Oral Tablet Amoxicillin-Pot Clavulanate 875-125 MG Amoxicillin-Pot Clavulanate 875-125 MG 11/10/2019 12:00:00 AM ES T active 1 tablet eCW1 ([facility]) . UNIT 11/10/2019 12:00:00 AM EST Aerosol 1 USE A S DIRECTED USE DIRECTED SOLD: 11/10/2019 [facility] 2.5 mg /3 mL (0.083 %) 11/10/2019 12:00:00 AM EST solu tion for nebulization 675 INHALE THE CONTENTS OF ONE VIAL VIA NEBU LIZER EVERY 4 HOURS NEEDED INHALE THE CONTENTS OF ONE VIAL VIA NEBULIZER EVERY 4 HOURS NEEDED SOLD: 11/10/2019 [facility] 50 mcg/actuation 11/10/2019 12:00:00 AM EST spray,suspension 16 SPRAY ONE TO TWO SPRAYS IN EACH NOSTRIL EVERY DAY SPRAY ONE TO TWO SPRAYS IN EACH NOSTRIL EVERY DAY SOLD: 11/10/2019 [facility] 20 mg 11/10/2019 12:00:00 AM EST tablet 10 TAKE TWO TABLETS BY MOUTH EVERY DAY WITH FOOD TAKE TWO TABLETS BY MOUTH EVERY DAY WITH FOOD SOLD: 11/10/2019 [facility] 875-125 mg 11/10/2019 12:00:00 AM EST tablet 20 TAKE ONE TABLET BY MOUTH EVERY 12 HOURS FOR 10 DAYS TAKE ONE TABLET BY MOUTH EVERY 12 HOURS FOR 10 DAYS SOLD: 11/10/2019 [facility] 90 mcg/actuation 11/10/2019 12:00:00 AM EST HFA aerosol inha ler 18 INHALE TWO PUFFS BY MOUTH EVERY 4 HOURS NEEDED INHALE TWO PUFFS BY MOUTH EVERY 4 HOURS NEEDED SOLD: 11/10/2019 [facility] 10 mg 11/10/2019 12:00:00 AM EST tablet 30 TAKE ONE TABLET BY MOUTH EVERY DAY NEEDED TAKE ONE TABLET BY MOUTH EVERY DAY NEEDED SOLD: 11/15/2019 [facility] 200 mcg 10/10/2019 12:00:00 AM EST tablet 30 TAKE ONE TABLET BY MOUTH EVERY DAY TAKE ONE TABLET BY MOUTH EVERY DAY SOLD: 10/12/2019 [facility] Insurance Providers Payer name Policy type / Coverage type Policy ID Covered libertarian ID Covered libertarian's relationship to haq Policy Haq Plan Information [facility] [id number] SP [id number] SP [id number] [facility] [id number] SP [id number] MEDICAID [id number] SP [id number] BCBS [place] HMO [id number] SP [id number] BCBS [place] PPO 302/307 [id number] SP [id number] BCBS/[employer] Commercial [id number] Self [id number] [id number] ANSI-Commercial [id number] ANSI-Commercial [id number] ANSI-Not a Secondary Insurance [id number] ANSI-Medicaid [id number] ANSI-Commercial [id number] ANSI-Commercial [id number] ANSI-Not a Secondary Insurance [id number] ANSI-Medicaid [id number] [place]BS [place] P[place] 302/307 [id number] SP [id number] [employer] BCBS B [id number] S [id number] ANSI-Commercial [id number] ANSI-Commercial [id number] ANSI-Not a Secondary Insurance [id number] ANSI-Medicaid [id number] ANSI-Commercial [id number] ANSI-Not a Secondary Insurance [id number] ANSI-Medicaid [id number] ANSI-Commercial [id number] ANSI-Commercial [id number] ANSI-Medicaid [id number] ANSI-Not a Secondary Insurance [id number] ANSI-Commercial [id number] ANSI-Commercial [id number] ANSI-Not a Secondary Insurance [id number] ANSI-Commercial [id number] ANSI-Medicaid [id number] ANSI-Commercial [id number] ANSI-Commercial [id number] ANSI-Medicaid [id number] ANSI-Not a Secondary Insurance [id number] SELF PAY ONLY [id number] SP [id number] HMO BLUE [id number] SP [id number] CAPC [id number] SP [id number] CAPC [id number] SP [id number] Excell[employer] BCBS Medigap Part B [id number] Self [id number] [facility] Health Maintenance Organization (HMO) [id number] Self [id number] SELF PAY ONLY [id number] SP [id number] HMO BLUE [id number] [id number] [facility] Maintenance Organization (HMO) Self [employer]AN MCDHMO [id number] SP [id number] [facility]) O [id number] S [id number] [facility] Health Maintenance Organization (HMO) Self BLUE CROSS [place] PLAN [id number] SP [id number] [facility]) S UNAVAILABLE S UNAVAILABLE EXCELLUS BCBS P UNAVAILABLE S UNAV AILABLE SELF PAY [id number] SP [id number] BCBS [place] PPO 302/307 [id number] SP [id number] BCBS [place] PPO 302/307 [id number] SP [id number] O BLUE [id number] SP [id number] Problems, Conditions, and Diagnoses Code Display Name Description Problem Type Effective Dates Data Source(s) N92.1 151524888 Menorrhagia with irregular cycle Problem 11/05/2020 12:00:00 AM EST eCW1 ([facility]) K30 427547809 Stomach upset Problem 08/23/2020 12:00:00 AM EST eCW1 ([facility]) J45.21 [id number] Mild intermittent asthma with exacerbatio n Problem 11/10/2019 12:00:00 AM EST eCW1 ([facility]) J45.21 [id number] Mild intermittent asthma with exacerbatio n Problem 11/10/2019 12:00:00 AM EST eCW1 ([facility]) Surgeries/Procedures Procedure Description Date Indications Data Source(s) Immunization: Flublok Quadrivalent (18 years & older) 0.5mL IM (Influenza) 08/14/2020 12:00:00 AM EST eCW1 ([facility]) TeleMedicine Est. Pt. Level 4 02/14/2020 12:00:00 AM E DT eCW1 ([facility]) PHYSICIAN TELEPHONE EVALUATION 21-30 MIN 01/09/2020 12 :00:00 AM EDT eCW1 ([facility]) NEB/MDI RX INITIAL 11/10/2019 12:00:00 AM EST eCW1 ([facility]) Albuterol, inhalation solution, compound ed product, administered through dme, unit dose, 1 mg 11/10/2019 12:00:00 AM EST eCW1 ([facility]) Results ID Date Data Source [id number] 09/28/2020 12:00:00 AM EST [facility] Name Value Range Interpretation Code Description Data Martina rce(s) Supporting Document(s) SARS coronavirus 2 RNA [Presence] in Res piratory specimen by OSIEL with probe detection [facility] This lab was ordered by Quang Sherwood and reported by [employer]. ID Date Data Source URINE CULTURE 08/15/2020 11:41:53 AM EST eCW1 ([facility]) Name Value Range Interpretation Code Description Data Martina rce(s) Supporting Document(s) eCW1 ([facility]) ID Date Data Source UA URINALYSIS 08/15/2020 10:43:38 AM EST eCW1 ([facility]) Name Value Range Interpretation Code Description Data Martina rce(s) Supporting Document(s) eCW1 ([facility]) ID Date Data Source VITAMIN D [id number] 08/14/2020 06:28:28 AM EST eCW1 ([facility]) Name Value Range Interpretation Code Description Data Martina rce(s) Supporting Document(s) 25.2 TOTAL 25(OH) VITAMIN D eCW1 ([facility]) TOTAL 25(OH) VITAMIN D ID Date Data Source Basic Metabolic Profile (BMP) 08/14/2020 06:28:28 AM EST eCW 1 ([facility]) Name Value Range Interpretation Code Description Data Martina rce(s) Supporting Document(s) 95 GLUCOSE, FASTING eCW1 ([facility]) > 60.0 GLOMERULAR FILTRATION RATE eCW 1 ([facility]) 1.04 CREATININE FOR GFR eCW1 ([facility]) 11 BLOOD UREA NITROGEN eCW1 ([facility]) 106 CHLORIDE LEVEL eCW1 ([facility]) 4.2 POTASSIUM SERUM eCW1 ([facility]) 139 SODIUM LEVEL eCW1 ([facility]) 9.3 CALCIUM LEVEL eCW1 ([facility]) 27 CARBON DIOXIDE LEVEL eCW1 ([facility]) ID Date Data Source FREE T4 & TSH PANEL 08/14/2020 06:28:28 AM EST eCW1 ([facility]) Name Value Range Interpretation Code Description Data Martina rce(s) Supporting Document(s) 1.950 THYROID STIMULATING HORMONE eC W1 ([facility]) THYROID STIMULATING HORMONE 1.09 FREE T4 eCW1 ([facility]) FREE T4 ID Date Data Source CBC with Differential 08/14/2020 06:28:28 AM EST eCW1 ([facility]) Name Value Range Interpretation Code Description Data Martina rce(s) Supporting Document(s) 4.82 eCW1 ([facility]) 13.4 eCW1 ([facility]) 9.9 eCW1 ([facility]) 42.0 eCW1 ([facility]) 87.1 eCW1 ([facility]) 27.8 eCW1 ([facility]) 31.9 eCW1 ([facility]) 70.9 eCW1 ([facility]) 14.2 eCW1 ([facility]) 314 eCW1 ([facility]) 19.5 eCW1 ([facility]) 2.0 eCW1 ([facility]) 0.3 eCW1 ([facility]) 6.8 eCW1 ([facility]) 7.0 eCW1 ([facility]) 0.7 eCW1 ([facility]) 1.9 eCW1 ([facility]) 0.2 eCW1 ([facility]) 0.0 eCW1 ([facility]) Procedure Social History Code Duration Value Status Description Data Source(s ) Smoking 08/23/2020 12:00:00 AM EST Never Smoker completed Never S moker eCW1 ([facility]) Smoking 08/23/2020 12:00:00 AM EST Never Smoker completed Never S moker eCW1 ([facility]) Smoking 08/23/2020 12:00:00 AM EST Never Smoker completed Never S moker eCW1 ([facility]) Smoking 08/14/2020 12:00:00 AM EST Never Smoker completed Never S moker eCW1 ([facility]) Vital Signs ID Date Data Source UNK Name Value Range Interpretation Code Description Data Source(s) Diastolic blood pressure 76 mm[Hg] 76 mm[Hg] eCW1 ([facility]) Systolic blood pressure 129 mm[Hg] 129 mm[Hg] e CW1 ([facility]) Body temperature 97.5 [degF] 97.5 [degF] eCW1 ( [facility]) Respiratory rate 18 /min 18 /min eCW1 ([facility]) Heart rate 87 /min 87 /min eCW1 ([facility]) Body mass index (BMI) [Ratio] 52.85 kg/m2 52.85 kg/m2 eCW1 ([facility]) Body height 62 [in_i] 62 [in_i] eCW1 ([facility]) Body weight 289 [lb_av] 289 [lb_av] eCW1 ([facility]) Diastolic blood pressure 80 mm[Hg] 80 mm[Hg] eCW1 ([facility]) Systolic blood pressure 140 mm[Hg] 140 mm[Hg] e CW1 ([facility]) Body temperature 97.2 [degF] 97.2 [degF] eCW1 ( [facility]) Respiratory rate 20 /min 20 /min eCW1 ([facility]) Heart rate 88 /min 88 /min eCW1 ([facility]) Body mass index (BMI) [Ratio] 53.40 kg/m2 53.40 kg/m2 eCW1 ([facility]) Body height 62 [in_i] 62 [in_i] eCW1 ([facility]) Body weight 292 [lb_av] 292 [lb_av] eCW1 ([facility]) Diastolic blood pressure 72 mm[Hg] 72 mm[Hg] eCW1 ([facility]) Systolic blood pressure 118 mm[Hg] 118 mm[Hg] e CW1 ([facility]) Body temperature 97.0 [degF] 97.0 [degF] eCW1 ( [facility]) Respiratory rate 20 /min 20 /min eCW1 ([facility]) Heart rate 104 /min 104 /min eCW1 ([facility]) Body mass index (BMI) [Ratio] 51.57 kg/m2 51.57 kg/m2 eCW1 ([facility]) Body height 62 [in_us] 62 [in_us] eCW1 ([facility]) Body weight Measured 282.0 [lb_av] 282.0 [lb_av ] eCW1 ([facility]) Diastolic blood pressure 86 mm[Hg] 86 mm[Hg] eCW1 ([facility]) Systolic blood pressure 124 mm[Hg] 124 mm[Hg] e CW1 ([facility]) Body temperature 98.2 [degF] 98.2 [degF] eCW1 ( [facility]) Respiratory rate 20 /min 20 /min eCW1 ([facility]) Heart rate 84 /min 84 /min eCW1 ([facility]) Body mass index (BMI) [Ratio] 51.94 kg/m2 51.94 kg/m2 eCW1 ([facility]) Body height 62 [in_us] 62 [in_us] eCW1 ([facility]) Body weight Measured 284.0 [lb_av] 284.0 [lb_av ] eCW1 ([facility]) Diastolic blood pressure 90 mm[Hg] 90 mm[Hg] eCW1 ([facility]) Systolic blood pressure 148 mm[Hg] 148 mm[Hg] e CW1 ([facility]) Body temperature 98.6 [degF] 98.6 [degF] eCW1 ( [facility]) Respiratory rate 18 /min 18 /min eCW1 ([facility]) Heart rate 96 /min 96 /min eCW1 ([facility]) Body mass index (BMI) [Ratio] 51.39 kg/m2 51.39 kg/m2 eCW1 ([facility]) Body height 62 [in_us] 62 [in_us] eCW1 ([facility]) Body weight Measured 281.0 [lb_av] 281.0 [lb_av ] eCW1 ([facility]) Patient Treatment Plan of Care Planned Activity Planned Date Details Description Data Source (s) Levothyroxine Sodium 0.15 MG Oral Tablet 02/14/2020 12:00:00 AM EDT eCW1 ([facility]) Amoxicillin 875 MG / Clavulanate 125 MG Oral Tablet 01/19/20 12:00:00 AM EDT eCW1 ([facility]) Fluconazole 150 MG Oral Tablet 01/19/2020 12:00:00 AM EDT eCW1 ([facility]) Fluconazole 150 MG Oral Tablet 01/19/2020 12:00:00 AM EDT eCW1 ([facility]) Amoxicillin 875 MG / Clavulanate 125 MG Oral Tablet 01/19/20 12:00:00 AM EDT eCW1 ([facility]) Levothyroxine Sodium 0.175 MG Oral Tablet 11/13/2019 12:00:00 AM ES T eCW1 ([facility]) Levothyroxine Sodium 0.175 MG Oral Tablet 11/13/2019 12:00:00 AM ES T eCW1 ([facility]) Amoxicillin 875 MG / Clavulanate 125 MG Oral Tablet 11/10/19 12:00:00 AM EST eCW1 ([facility])
[2020-11-07] MEDS ORDERED: LEVO150T7 (17:15)
[2020-11-07] MEDS ORDERED: IBUP200T45 PO (17:15)
[2020-11-07] MEDS ORDERED: CETI-24 (17:15)
[2020-11-07 17:52] LABS: HEMATOCRIT 39.2 % (36.0-47.0); HEMOGLOBIN 12.6 g/dl (12.0-15.5); MEAN CORPUSCULAR HEMOGLOBIN 27.6 pg (27.0-33.0); MEAN CORPUSCULAR HGB CONC 32.1 g/dl (32.0-36.5); MEAN CORPUSCULAR VOLUME 85.8 fl (80.0-96.0); PLATELET COUNT, AUTOMATED 295 10^3/uL (150-450); RED BLOOD COUNT 4.57 10^6/uL (4.00-5.40); WHITE BLOOD COUNT 9.6 10^3/uL (4.0-10.0)
--- OUTSIDE RECORDS SUMMARY | 2020-11-07 20:05 | CCD ---
Author Author [facility] Organization [facility] Address Unknown Phone Unavailable Support Name Relationship Address Phone JRC* Next Of [place] [address] [facility] Next [place] [address] [place] [address] [employer] Next Of [place] [address] [place] [address] Heath Lang [facility] [address] [place] [address] [phone] Re-disclosure Warning The records that you are [...] is protected by Article 27-F of the [facility] Public Health law. If you continue you may have access to information: Regarding HIV / AIDS; Provided by facilities licensed or operated by the [facility] Office of Mental Health; or Provided by the [facility] Office for People With Developmental Disabilities. If such information is present, then the following [facility] mandated warning applies: This information has [...] law may result in a fine or fpc sentence or both. A general authorization for the release of medical or other information is NOT sufficient authorization for further disc losure. Allergies and Adverse Reactions Type Description Substance Reaction Status Data Source(s ) kiwi, tea kiwi, tea kiwi, tea tongue swelling, itchy mouth Active eCW1 ([facility]) Bananas Bananas Bananas Bloating, severe abdominal pain Act geena eCW1 ([facility]) kiwi, tea kiwi, tea kiwi, tea tongue swelling, itchy mouth Active eCW1 ([facility]) Bananas Bananas Bananas Bloating, severe abdominal pain Act geena eCW1 ([facility]) kiwi, tea kiwi, tea kiwi, tea tongue swelling, itchy mouth Active eCW1 ([facility]) Bananas Bananas Bananas Bloating, severe abdominal pain Act geena eCW1 ([facility]) kiwi, tea kiwi, tea kiwi, tea tongue swelling, itchy mouth Active eCW1 ([facility]) Bananas Bananas Bananas Bloating, severe abdominal pain Act geena eCW1 ([facility]) kiwi, tea kiwi, tea kiwi, tea tongue swelling, itchy mouth Active eCW1 ([facility]) Bananas Bananas Bananas Bloating, severe abdominal pain Act geena eCW1 ([facility]) Family History Family Member Name Family Member [...] ([facility]) Unknown Female Problem MEDENT ([facility]) Unknown Female Problem MEDENT ([facility] ) Unknown Female Problem MEDENT ([facility], ) Unknown Female Problem MEDENT ([facility], ) Unknown Female Problem MEDENT ([facility], ) Encounters Encounter Providers Location Date Indications Data Source(s ) Unknown [address] [facility] [address] 11/05/2020 12:00:00 AM EST eCW1 ([facility] Outpatient [address] [facility] [place] [address] 08/23/2020 12:00:00 AM EST eCW1 ([facility]) Unknown [address] [facility] [address] 08/21/2020 12:00:00 AM EST [facility] Outpatient [address] [facility] [place] [address] 08/14/2020 12:00:00 AM EST eCW1 ([facility]) [facility] [address] [place] [address] Y [address] 04/22/2020 12:00:00 AM EDT eCW1 ([facility]) [facility] [address] [facility] [address] 02/14/2020 12:00:00 AM EDT eCW1 ([facility]) [facility] [address] [place] [address] [place] [address] 01/19/2020 12:00:00 AM EDT eCW1 ([facility]) [facility] [address] [place] [address], [place] [address] 01/19/2020 12:00:00 AM EDT eCW1 ([facility]) [facility] [address] [place] [address] N [place] [address] 01/09/2020 12:00:00 AM EDT eCW1 ([facility]) [facility] [address] [place] [address], [place] [address] 12/14/2019 12:00:00 AM EST eCW1 ([facility]) [facility] [address] [facility] [address] 11/13/2019 12:00:00 AM EST eCW1 ([facility]) [facility] [place] [address] [facility] [address] 11/10/2019 12:00:00 AM EST eCW1 ([facility]) Immunizations Vaccine Date Status Description Data Source(s) influenza, recombinant, quadrIvalent,injectable, prese rvative free 08/14/2020 12:00:00 PM EST completed eCW1 ([facility]) influenza, recombinant, quadrIvalent,injectable, prese rvative free 08/14/2020 12:00:00 PM EST completed eCW1 ([facility]) influenza, recombinant, quadrIvalent,injectable, prese rvative free 08/14/2020 12:00:00 PM EST completed eCW1 ([facility]) influenza, recombinant, quadrIvalent,injectable, prese rvative free 08/14/2020 12:00:00 PM EST completed eCW1 ([facility]) Medications Medication Brand Name Start Date Product [...] Levothyroxine Sodium 150 MCG eCW1 ([facility]) Levothyroxine Sodium 0.15 MG Oral Tablet Levothyroxine Sodium 150 MCG Levothyroxine Sodium 150 MCG 02/14/2020 12:00:00 AM EDT active 1 tablet in the morning on an empty stomach eCW1 ([facility]) Levothyroxine Sodium 0.15 MG Oral Tablet Levothyroxine Sodium 150 MCG Levothyroxine Sodium 150 MCG 02/14/2020 12:00:00 AM EDT active Levothyroxine Sodium 150 MCG eCW1 ([facility]) Levothyroxine Sodium 0.15 MG Oral Tablet Levothyroxine Sodium 150 MCG Levothyroxine Sodium 150 MCG 02/14/2020 12:00:00 AM EDT active Levothyroxine Sodium 150 MCG eCW1 ([facility]) 150 mcg 02/14/2020 12:00:00 AM EDT tablet [...] Cla vulanate 875-125 MG eCW1 ([facility]) Fluconazole 150 MG Oral Tablet Fluconazole 150 MG 01/19/2020 12:00: 00 AM EDT 1.0 {tablet} active Fluconazole 150 MG eCW1 ([facility]) Fluconazole 150 MG Oral Tablet Fluconazole 150 MG 01/19/2020 12:00: 00 AM EDT 1.0 {tablet} active Fluconazole 150 MG eCW1 ([facility]) Amoxicillin 875 MG / Clavulanate 125 MG Oral Tablet Amoxicillin-Pot Clavulanate 875-125 MG Amoxicillin-Pot Clavulanate 875-125 MG 01/19/2020 12:00:00 AM ED T 1.0 {tablet} active Amoxicillin-Pot Cla vulanate 875-125 MG eCW1 ([facility]) Amoxicillin 875 MG / Clavulanate 125 MG Oral Tablet Amoxicillin-Pot Clavulanate 875-125 MG Amoxicillin-Pot Clavulanate 875-125 MG 01/19/2020 12:00:00 AM ED T 1.0 {tablet} active Amoxicillin-Pot Cla vulanate 875-125 MG eCW1 ([facility]) 875-125 mg 01/19/2020 12:00:00 AM EDT tablet [...] active Fluconazole 150 MG eCW1 ([facility]) Amoxicillin 875 MG / Clavulanate 125 MG Oral Tablet Amoxicillin-Pot Clavulanate 875-125 MG Amoxicillin-Pot Clavulanate 875-125 MG 01/19/2020 12:00:00 AM ED T suspended 1 tablet eCW1 ([facility]) Fluconazole 150 MG Oral Tablet Fluconazole 150 MG 01/19/2020 12:00: 00 AM EDT active 1 tablet eCW1 ([facility]) Fluconazole 150 MG Oral Tablet Fluconazole 150 MG 01/19/2020 12:00: 00 AM EDT 1.0 {tablet} active Fluconazole 150 MG eCW1 ([facility]) Amoxicillin 875 MG / Clavulanate 125 MG Oral Tablet Amoxicillin-Pot Clavulanate 875-125 MG Amoxicillin-Pot Clavulanate 875-125 MG 01/19/2020 12:00:00 AM ED T 1.0 {tablet} active Amoxicillin-Pot Cla vulanate 875-125 MG eCW1 ([facility]) Amoxicillin 875 MG / Clavulanate 125 MG Oral Tablet Amoxicillin-Pot Clavulanate 875-125 MG Amoxicillin-Pot Clavulanate 875-125 MG 01/19/2020 12:00:00 AM ED T active 1 tablet eCW1 ([facility]) Fluconazole 150 MG Oral Tablet Fluconazole 150 MG 01/19/2020 12:00: 00 AM EDT suspended 1 tablet eCW1 ([facility]) 1,250 mcg (50,000 unit) 01/17/2020 12:00:00 AM [...] on an empty stomach eCW1 ([facility]) Levothyroxine Sodium 0.175 MG Oral Tablet Levothyroxin e Sodium 175 MCG Levothyroxine Sodium 175 MCG 11/13/2019 12:00:00 AM EST active 1 tablet in the morning on an empty stomach W1 ([facility]) Levothyroxine Sodium 0.175 MG Oral Tablet Levothyroxin e Sodium 175 MCG Levothyroxine Sodium 175 MCG 11/13/2019 12:00:00 AM EST active 1 tablet in the morning on an empty stomach eCW1 ([facility]) Levothyroxine Sodium 0.175 MG Oral Tablet Levothyroxin e Sodium 175 MCG Levothyroxine Sodium 175 MCG 11/13/2019 12:00:00 AM EST active 1 tablet in the morning on an empty stomach eCW1 ([facility]) Amoxicillin 875 MG / Clavulanate 125 MG Oral Tablet Amoxicillin-Pot Clavulanate 875-125 MG Amoxicillin-Pot Clavulanate 875-125 MG 11/10/2019 12:00:00 AM ES T active 1 tablet eCW1 ([facility]) . UNIT 11/10/2019 12:00:00 AM EST Aerosol [...] BY MOUTH EVERY DAY NEEDED SOLD: 11/15/2019 [facility] 200 mcg 10/10/2019 12:00:00 AM EST tablet 30 TAKE ONE TABLET BY MOUTH EVERY DAY TAKE ONE TABLET BY MOUTH EVERY DAY SOLD: 10/12/2019 [facility] Insurance Providers Payer name Policy type / Coverage type Policy ID Covered green party ID Covered green party's relationship to haq Policy Haq Plan Information [facility] COMMUNITY PLAN [place] [id number] SP [id number] EMEDNY [id number] SP [id number] [facility] COMMUNITY [facility] [place] [id number] SP [id number] MEDICAID [id number] BCBS [place] HMO [id number] SP [id number] [place] PPO 302/307 [id number] SP [id number] BCBS/[employer] Commercial [id number] Self [id number] [id number] ANSI-Commercial [id number] ANSI-Commercial [id number] ANSI-Not a Secondary Insurance [id number] ANSI-Medicaid [id number] ANSI-Commercial [id number] ANSI-Commercial [id number] ANSI-Not a Secondary Insurance [id number] ANSI-Medicaid [id number] [place]BS [place] PPO 302/307 [id number] SP [id number] [employer] BCBS B [id number] S [id number] ANSI-Commercial [id number] ANSI-Commercial [id number] ANSI-Not a Secondary Insurance [id number] ANSI-Medicaid [id number] ANSI-Commercial [id number] ANSI-Not a Secondary Insurance [id number] ANSI-Medicaid [id number] ANSI-Commercial [id number] ANSI-Commercial [id number] ANSI-Medicaid [id number] ANSI-Not a Secondary Insurance [id number] ANSI-Commercial [id number] ANSI-Commercial [id number] ANSI-Not a Secondary Insurance [id number] ANSI-Commercial [id number] ANSI-Medicaid [id number] ANSI-Commercial [id number] ANSI-Commercial [id number] ANSI-Medicaid [id number] ANSI-Not a Secondary Insurance [id number] SELF PAY ONLY [id number] SP [id number] O BLUE [id number] SP [id number] CAPC [id number] SP [id number] CAPC [id number] SP [id number] [employer] BCBS Medigap Part B [id number] Self [id number] [facility] Health Maintenance Organization (HMO) [id number] Self [id number] SELF PAY ONLY [id number] SP [id number] O BLUE [id number] SP [id number] [facility] Maintenance Organization (HMO) Self [employer] COMMUNITY PLAN MCDHMO [id number] SP [id number] [facility](MCAID) O [id number] S [id number] [facility] Health Maintenance Organization (HMO) Self BLUE [place]OSS [place] PLAN [id number] SP [id number] [facility]) S UNAVAILABLE S UNAVAILABLE [employer]LL[employer] BCBS P UNAVAILABLE S UNAV AILABLE SELF PAY [id number] SP [id number] BCBS [place] PPO 302/307 [id number] SP [id number] BCBS [place] PPO 302/307 [id number] SP [id number] O BLUE [id number] SP [id number] Problems, Conditions, and Diagnoses Code Display Name Description Problem Type Effective Dates Data Source(s) N92.1 076246122 Menorrhagia with irregular cycle Problem 11/05/2020 12:00:00 AM EST eCW1 ([facility]) K30 [id number] Stomach upset Problem 08/23/2020 12:00:00 AM EST eCW1 ([facility]) J45.21 [id number] Mild intermittent asthma with exacerbatio n Problem 11/10/2019 12:00:00 AM EST eCW1 ([facility]) J45.21 [id number] Mild intermittent asthma with exacerbatio n Problem 11/10/2019 12:00:00 AM EST eCW1 ([facility]) Surgeries/Procedures Procedure Description Date Indications Data Source(s) Immunization: Flublok Quadrivalent (18 years & older) 0.5mL IM (Influenza) 08/14/2020 12:00:00 AM EST eCW1 ([facility]) TeleMedicine Est. Pt. Level 4 02/14/2020 12:00:00 AM E DT eCW1 ([facility]) PHYSICIAN TELEPHONE EVALUATION 21-30 MIN 01/09/2020 12 :00:00 AM EDT eCW1 ([facility]) NEB/MDI RX INITIAL 11/10/2019 12:00:00 AM EST eCW1 ([facility]) Albuterol, inhalation solution, compound ed product, administered through dme, unit dose, 1 mg 11/10/2019 12:00:00 AM EST eCW1 ([facility]) Results ID Date Data Source [id number] 09/28/2020 12:00:00 AM EST [facility] Name Value Range Interpretation Code Description Data Martina rce(s) Supporting Document(s) SARS coronavirus 2 RNA [Presence] in Res piratory specimen by OSIEL with probe detection [facility] This lab was ordered by Quang Sherwood and reported by [employer]. ID Date Data Source URINE CULTURE 08/15/2020 11:41:53 AM EST eCW1 ([facility]) Name Value Range Interpretation Code Description Data Martina rce(s) Supporting Document(s) eCW1 ([facility]) ID Date Data Source UA URINALYSIS 08/15/2020 10:43:38 AM EST eCW1 ([facility]) Name Value Range Interpretation Code Description Data Martina rce(s) Supporting Document(s) eCW1 ([facility]) ID Date Data Source VITAMIN D 25-HYDROXY 08/14/2020 06:28:28 AM EST eCW1 ([facility]) Name Value Range Interpretation Code Description Data Martina rce(s) Supporting Document(s) 25.2 TOTAL 25(OH) VITAMIN D eCW1 ([facility]) TOTAL 25(OH) VITAMIN D ID Date Data Source Basic Metabolic Profile (BMP) 08/14/2020 06:28:28 AM EST eCW 1 ([facility]) Name Value Range Interpretation Code Description Data Martina rce(s) Supporting Document(s) 95 GLUCOSE, FASTING eCW1 ([facility]) > 60.0 GLOMERULAR FILTRATION RATE eCW 1 ([facility]) 1.04 CREATININE FOR GFR eCW1 (Critical access hospital) 11 BLOOD UREA NITROGEN eCW1 ([facility]) 106 CHLORIDE LEVEL eCW1 ([facility]) 4.2 POTASSIUM SERUM eCW1 (Pending sale to [facility]) 139 SODIUM LEVEL eCW1 ([facility]) 9.3 CALCIUM LEVEL eCW1 ([facility]) 27 CARBON DIOXIDE LEVEL eCW1 ([facility]) ID Date Data Source FREE T4 & TSH PANEL 08/14/2020 06:28:28 AM EST eCW1 ([facility]) Name Value Range Interpretation Code Description Data Martina rce(s) Supporting Document(s) 1.950 THYROID STIMULATING HORMONE eC W1 ([facility]) THYROID STIMULATING HORMONE 1.09 FREE T4 eCW1 ([facility]) FREE T4 ID Date Data Source CBC with Differential 08/14/2020 06:28:28 AM EST eCW1 ([facility] hospital) Name Value Range Interpretation Code Description Data Martina rce(s) Supporting Document(s) 4.82 eCW1 ([facility]) 13.4 eCW1 ([facility]) 9.9 eCW1 ([facility]) 42.0 eCW1 ([facility]) 87.1 eCW1 ([facility]) 27.8 eCW1 ([facility]) 31.9 eCW1 ([facility]) 70.9 eCW1 ([facility]) 14.2 eCW1 ([facility]) 314 eCW1 ([facility]) 19.5 eCW1 ([facility]) 2.0 eCW1 ([facility]) 0.3 eCW1 ([facility]) 6.8 eCW1 ([facility]) 7.0 eCW1 ([facility]) 0.7 eCW1 ([facility]) 1.9 eCW1 ([facility]) 0.2 eCW1 ([facility]) 0.0 eCW1 ([facility]) Procedure Social History Code Duration Value Status Description Data Source(s ) Smoking 08/23/2020 12:00:00 AM EST Never Smoker completed Never S moker eCW1 ([facility]) Smoking 08/23/2020 12:00:00 AM EST Never Smoker completed Never S moker eCW1 ([facility]) Smoking 08/23/2020 12:00:00 AM EST Never Smoker completed Never S moker eCW1 ([facility]) Smoking 08/14/2020 12:00:00 AM EST Never Smoker completed Never S moker eCW1 ([facility]) Vital Signs ID Date Data Source UNK Name Value Range Interpretation Code Description Data Source(s) Diastolic blood pressure 76 mm[Hg] 76 mm[Hg] eCW1 ([facility]) Systolic blood pressure 129 mm[Hg] 129 mm[Hg] e CW1 ([facility]) Body temperature 97.5 [degF] 97.5 [degF] eCW1 ( [facility]) Respiratory rate 18 /min 18 /min eCW1 ([facility]) Heart rate 87 /min 87 /min eCW1 (Pending sale to [facility]) Body mass index (BMI) [Ratio] 52.85 kg/m2 52.85 kg/m2 eCW1 ([facility]) Body height 62 [in_i] 62 [in_i] eCW1 ([facility]) Body weight 289 [lb_av] 289 [lb_av] eCW1 ([facility]) Diastolic blood pressure 80 mm[Hg] 80 mm[Hg] eCW1 ([facility]) Systolic blood pressure 140 mm[Hg] 140 mm[Hg] e CW1 ([facility]) Body temperature 97.2 [degF] 97.2 [degF] eCW1 ( [facility]) Respiratory rate 20 /min 20 /min eCW1 ([facility]) Heart rate 88 /min 88 /min eCW1 (Pending sale to [facility]) Body mass index (BMI) [Ratio] 53.40 kg/m2 53.40 kg/m2 eCW1 ([facility]) Body height 62 [in_i] 62 [in_i] eCW1 ([facility]) Body weight 292 [lb_av] 292 [lb_av] eCW1 ([facility] hospital) Diastolic blood pressure 72 mm[Hg] 72 mm[Hg] eCW1 ([facility]) Systolic blood pressure 118 mm[Hg] 118 mm[Hg] e CW1 ([facility]) Body temperature 97.0 [degF] 97.0 [degF] eCW1 ( [facility]) Respiratory rate 20 /min 20 /min eCW1 ([facility]) Heart rate 104 /min 104 /min eCW1 (Pending sale to [facility]) Body mass index (BMI) [Ratio] 51.57 kg/m2 51.57 kg/m2 eCW1 ([facility]) Body height 62 [in_us] 62 [in_us] eCW1 ([facility]) Body weight Measured 282.0 [lb_av] 282.0 [lb_av ] eCW1 ([facility]) Diastolic blood pressure 86 mm[Hg] 86 mm[Hg] eCW1 ([facility]) Systolic blood pressure 124 mm[Hg] 124 mm[Hg] e CW1 ([facility]) Body temperature 98.2 [degF] 98.2 [degF] eCW1 ( [facility]) Respiratory rate 20 /min 20 /min eCW1 ([facility]) Heart rate 84 /min 84 /min eCW1 (Pending sale to [facility]) Body mass index (BMI) [Ratio] 51.94 kg/m2 51.94 kg/m2 eCW1 ([facility]) Body height 62 [in_us] 62 [in_us] eCW1 ([facility]) Body weight Measured 284.0 [lb_av] 284.0 [lb_av ] eCW1 ([facility]) Diastolic blood pressure 90 mm[Hg] 90 mm[Hg] eCW1 ([facility]) Systolic blood pressure 148 mm[Hg] 148 mm[Hg] e CW1 ([facility]) Body temperature 98.6 [degF] 98.6 [degF] eCW1 ( [facility]) Respiratory rate 18 /min 18 /min eCW1 ([facility]) Heart rate 96 /min 96 /min eCW1 (Pending sale to [facility]) Body mass index (BMI) [Ratio] 51.39 kg/m2 51.39 kg/m2 W1 ([facility]) Body height 62 [in_us] 62 [in_us] eCW1 ([facility]) Body weight Measured 281.0 [lb_av] 281.0 [lb_av ] eCW1 ([facility]) Patient Treatment Plan of Care Planned Activity Planned Date Details Description Data Source (s) Levothyroxine Sodium 0.15 MG Oral Tablet 02/14/2020 12:00:00 AM EDT eCW1 ([facility]) Amoxicillin 875 MG / Clavulanate 125 MG Oral Tablet 01/19/20 20 12:00:00 AM EDT eCW1 ([facility]) Fluconazole 150 MG Oral Tablet 01/19/2020 12:00:00 AM EDT eCW1 ([facility]) Fluconazole 150 MG Oral Tablet 01/19/2020 12:00:00 AM EDT eCW1 ([facility]) Amoxicillin 875 MG / Clavulanate 125 MG Oral Tablet 01/19/20 12:00:00 AM EDT eCW1 ([facility]) Levothyroxine Sodium 0.175 MG Oral Tablet 11/13/2019 12:00:00 AM ES T eCW1 ([facility]) Levothyroxine Sodium 0.175 MG Oral Tablet 11/13/2019 12:00:00 AM ES T eCW1 ([facility]) Amoxicillin 875 MG / Clavulanate 125 MG Oral Tablet 11/10/19 12:00:00 AM EST eCW1 ([facility])
--- NOTE | 2020-11-07 20:58 | ECGEPIP ---
[facility] - ED Test Date: 2020-11-07 Pat Name: NAYELY BURNETTE Department: Room: - Gender: Female [employer]: TY : 1975 Requested By: CARLOS Guidry Order Number: [id number] Reading MD: Daniel Galvan Measurements Intervals [place] Rate: 69 P: 55 KS: 137 QRS: 25 QRSD: 94 T: 25 QT: 369 QTc: 396 Interpretive Statements SINUS RHYTHM INCOMPLETE RIGHT BUNDLE BRANCH BLOCK BASELINE ARTIFACT AFFECTS INTERPRETATION SIMILAR TO 07/22/18 Electronically Signed on 11-07-2020 20:57:50 EST by Daniel Galvan
[2020-11-07 22:00] VITALS: BP 139/86
== END 2020-11-07 22:09 | disposition home or self-care (01) ==
LOC: M ED 17:02
DX: N92.0 Excessive and frequent menstruation with regular cycle (principal)

== ENCOUNTER → 2020-11-12 | Outpatient (CLI) | payer OTHER ==
[~2020-11-12] MED LIST changes: +CETI-24; +IBUP200T45 PO; +ISOVUE-370 76% 100ML VIAL As Ordered ONE; +LEVO150T7
--- NOTE | 2020-11-12 15:40 | REP ---
INDICATION: ABD PAIN UNSPEFICFIED. COMPARISON: None. TECHNIQUE: Helical scanning is acquired and 3 mm axial images re-formatted. Coronal and sagittal MPR images are generated. The CT contrast enhancement dose is 100 mL of intravenous Isovue 370. FINDINGS: Digital preliminary hvac service manager radiograph is unremarkable. Normal bowel gas pattern. The lung bases are clear on axial CT images. There is mild diffuse fatty infiltration of the liver. No focal liver lesion is seen. The spleen is normal size homogeneous in texture. No adrenal lesion is seen. No abnormality is noted in the gallbladder or the pancreas. Small and large intestinal bowel loops are normal in the abdomen and pelvis. The appendix is not identified but there are no inflammatory changes adjacent to the cecum. No uterine or ovarian mass lesion is seen. There is a small cyst in the left ovary 2.5 cm in diameter. No free fluid is seen. The kidneys enhance symmetrically and are morphologically intact. No hydronephrosis or intrarenal calculus is seen. Urinary bladder is unremarkable although largely empty. No abdominal wall defect is seen. No bony destructive lesion. IMPRESSION: Mild diffuse fatty infiltration of the liver. No acute abdominal or pelvic abnormality seen. <Electronically signed by Deangelo Rosales > 11/12/20 [id number]
== END ==
LOC: M RAD 14:46
PROVIDERS: ATTEND Nurse Practitioner Family
DX: R10.9 Unspecified abdominal pain (principal)
CPT/HCPCS: 74177; Q9967

== ENCOUNTER → 2020-11-18 | Outpatient (REF) | payer OTHER ==
[~2020-11-18] MED LIST changes: -ISOVUE-370 76% 100ML VIAL As Ordered ONE
== END ==
LOC: M SFHCWAGY 09:59
PROVIDERS: ATTEND Nurse Practitioner Women's Health
DX: Z12.4 Encounter for screening for malignant neoplasm of cervix (principal); N93.9 Abnormal uterine and vaginal bleeding, unspecified; N84.1 Polyp of cervix uteri

== ENCOUNTER → 2020-12-06 | Outpatient (CLI) | payer OTHER ==
--- NOTE | 2020-12-06 17:31 | REP ---
INDICATION: AUB. COMPARISON: Comparison CT study abdomen pelvis November 12, 2020.. TECHNIQUE: Transabdominal and transvaginal scanning were performed. FINDINGS: Uterine dimensions are normal at 8.8 x 4.4 x 4.9 cm. Endometrial echo is 0.6 cm thick and centrally placed. No free fluid is seen in the cul-de-sac. Visualized bladder nath are smooth. The right ovary has dimensions of 4.5 x 2.8 x 4.0 cm. there is a simple cyst in the right ovary measuring 2.9 x 3.1 x 3.1 cm.. The left ovary dimensions are normal as well at 1.9 x 1.5 x 1.7 cm. IMPRESSION: 3.1 cm simple cyst right ovary. Otherwise negative.. <Electronically signed by Deangelo Rosales > 12/06/20 [id number]
== END ==
LOC: M WHC 15:48
PROVIDERS: ATTEND Nurse Practitioner Women's Health
DX: N83.201 Unspecified ovarian cyst, right side (principal); N93.9 Abnormal uterine and vaginal bleeding, unspecified

== ENCOUNTER → 2020-12-12 | Outpatient (REF) | payer OTHER | LOC: M SFHCWAGY 10:06 | PROVIDERS: ATTEND Nurse Practitioner Women's Health | DX: N93.9 Abnormal uterine and vaginal bleeding, unspecified (principal) ==

== ENCOUNTER → 2021-01-30 | Outpatient (CLI) | payer OTHER ==
--- NOTE | 2021-01-30 08:53 | REPPI ---
INDICATION: KIDNEY STONES COMPARISON: None. TECHNIQUE: Supine views of the abdomen and pelvis. FINDINGS: No obvious urinary tract calcifications are appreciated. Bowel gas pattern is nonspecific and without obstruction or perforation. No organomegaly. No abnormal calcifications. Skeletal structures intact. IMPRESSION: Normal abdominal radiograph. No obvious urinary tract calcifications appreciated. <Electronically signed by Jonathon Koch > 01/30/21 [id number]
--- NOTE | 2021-01-30 08:54 | REPPI ---
INDICATION: SCIATICA COMPARISON: 08/24/2018 TECHNIQUE: AP, lateral, bilateral oblique, and coned-down views of the lumbar spine. FINDINGS: Alignment and lordosis maintained. Vertebral bodies are intact and there is no evidence for acute fracture/compression injury or subluxation. Moderate multilevel degenerative changes include endplate sclerosis with very subtle marginal spurring/osteophyte formation and minimal disc space narrowing. No obvious spondylolysis or spondylolisthesis. IMPRESSION: Moderate multilevel degenerative changes. <Electronically signed by Jonathon Koch > 01/30/21 [id number]
== END ==
LOC: M PLAIMG 08:19
PROVIDERS: ATTEND Nurse Practitioner Family
DX: R35.0 Frequency of micturition (principal); M54.42 Lumbago with sciatica, left side

== ENCOUNTER → 2021-01-30 | Outpatient (REF) | payer OTHER ==
[2021-01-30 10:20] LABS: APPEARANCE, URINE CLEAR (CLEAR); BACTERIA, URINE AUTO 1+ (NEGATIVE); BILIRUBIN, URINE AUTO NEGATIVE (NEGATIVE); BLOOD, URINE BLOOD 1+ (NEGATIVE); COLOR, URINE YELLOW (YELLOW); GLUCOSE, URINE (UA) AUTO NEGATIVE (NEGATIVE); KETONE, URINE AUTO NEGATIVE (NEGATIVE); LEUKOCYTE ESTERASE, URINE AUTO NEGATIVE (NEGATIVE); MUCUS, URINE SMALL (NEGATIVE); NITRITE, URINE AUTO NEGATIVE (NEGATIVE); PROTEIN, URINE AUTO NEGATIVE (NEGATIVE); RBC, URINE AUTO 18 /HPF (0-3); SQUAMOUS EPITHELIAL CELL UR AU 1 /HPF (0-6); UROBILINOGEN, URINE AUTO 0.2 mg/dL (0.0-2.0); WBC, URINE AUTO 3 /HPF (0-3)
[2021-01-30 10:22] LABS: BASO # 0.1 10^3/uL (0.0-0.2); BASO % 0.5 % (0.0-1.0); EOS # 0.3 10^3/uL (0.0-0.5); HEMATOCRIT 37.2 % (36.0-47.0); HEMOGLOBIN 11.3 g/dl (12.0-15.5); LYMPH # 1.9 10^3/uL (1.5-5.0); LYMPH % 18.5 % (24.0-44.0); MEAN CORPUSCULAR HGB CONC 30.4 g/dl (32.0-36.5); MEAN CORPUSCULAR VOLUME 85.5 fl (80.0-96.0); MONO # 0.8 10^3/uL (0.0-0.8); MONO % 7.7 % (2.0-8.0); NEUTROPHILS # 7.2 10^3/uL (1.5-8.5); NEUTROPHILS % 69.3 % (36.0-66.0); PLATELET COUNT, AUTOMATED 282 10^3/uL (150-450); RED BLOOD COUNT 4.35 10^6/uL (4.00-5.40); WHITE BLOOD COUNT 10.4 10^3/uL (4.0-10.0)
[2021-01-30 10:46] LABS: BLOOD UREA NITROGEN 12 MG/DL (7-18); CALCIUM LEVEL 8.8 MG/DL (8.5-10.1); CARBON DIOXIDE LEVEL 29 MEQ/L (21-32); CHLORIDE LEVEL 105 MEQ/L (98-107); CREATININE FOR GFR 0.86 MG/DL (0.55-1.30); GLOMERULAR FILTRATION RATE > 60.0 (>58); GLUCOSE, FASTING 82 MG/DL (70-100); POTASSIUM SERUM 4.3 MEQ/L (3.5-5.1); SODIUM LEVEL 138 MEQ/L (136-145)
== END ==
LOC: M SFHCPLAZ 08:18
PROVIDERS: ATTEND Nurse Practitioner Family
DX: R35.0 Frequency of micturition (principal); M54.42 Lumbago with sciatica, left side

== ENCOUNTER → 2021-02-18 | Outpatient (REF) | payer OTHER ==
[2021-02-18 15:04] LABS: BASO # 0.1 10^3/uL (0.0-0.2); BASO % 0.5 % (0.0-1.0); EOS # 0.5 10^3/uL (0.0-0.5); EOS % 4.2 % (0.0-3.0); HEMATOCRIT 32.1 % (36.0-47.0); HEMOGLOBIN 9.7 g/dl (12.0-15.5); LYMPH # 2.4 10^3/uL (1.5-5.0); LYMPH % 22.8 % (24.0-44.0); MEAN CORPUSCULAR HEMOGLOBIN 25.6 pg (27.0-33.0); MEAN CORPUSCULAR HGB CONC 30.2 g/dl (32.0-36.5); MEAN CORPUSCULAR VOLUME 84.7 fl (80.0-96.0); MONO # 0.8 10^3/uL (0.0-0.8); MONO % 7.2 % (2.0-8.0); NEUTROPHILS # 6.9 10^3/uL (1.5-8.5); NEUTROPHILS % 64.6 % (36.0-66.0); PLATELET COUNT, AUTOMATED 354 10^3/uL (150-450); RED BLOOD COUNT 3.79 10^6/uL (4.00-5.40); WHITE BLOOD COUNT 10.7 10^3/uL (4.0-10.0)
[2021-02-18 15:09] LABS: APPEARANCE, URINE HAZY (CLEAR); BACTERIA, URINE AUTO 1+ (NEGATIVE); BILIRUBIN, URINE AUTO NEGATIVE (NEGATIVE); BLOOD, URINE BLOOD 3+ (NEGATIVE); COLOR, URINE RED (YELLOW); GLUCOSE, URINE (UA) AUTO NEGATIVE (NEGATIVE); KETONE, URINE AUTO NEGATIVE (NEGATIVE); LEUKOCYTE ESTERASE, URINE AUTO NEGATIVE (NEGATIVE); NITRITE, URINE AUTO NEGATIVE (NEGATIVE); PROTEIN, URINE AUTO 2+ mg/dL (NEGATIVE); RBC, URINE AUTO TNTC /HPF (0-3); SPECIFIC GRAVITY URINE AUTO 1.009 (1.002-1.035); SQUAMOUS EPITHELIAL CELL UR AU 0 /HPF (0-6); UROBILINOGEN, URINE AUTO 0.2 mg/dL (0.0-2.0); WBC, URINE AUTO 3 /HPF (0-3)
[2021-02-18 15:46] LABS: FREE T4 0.96 NG/DL (0.76-1.46); THYROID STIMULATING HORMONE 11.5 uIU/ML (0.358-3.740)
[2021-02-18 15:47] LABS: TOTAL 25(OH) VITAMIN D 19.1 NG/ML (30.0-100.0)
== END ==
LOC: M SFHCPLAZ 12:32
PROVIDERS: ATTEND Nurse Practitioner Family
DX: E03.9 Hypothyroidism, unspecified (principal); E55.9 Vitamin D deficiency, unspecified; N93.9 Abnormal uterine and vaginal bleeding, unspecified; R32 Unspecified urinary incontinence

== ENCOUNTER → 2021-04-07 | Outpatient (CLI) | payer OTHER ==
[2021-04-07 15:40] LABS: HEMATOCRIT 30.8 % (36.0-47.0); HEMOGLOBIN 8.9 g/dl (12.0-15.5); MEAN CORPUSCULAR HEMOGLOBIN 25.2 pg (27.0-33.0); MEAN CORPUSCULAR HGB CONC 28.9 g/dl (32.0-36.5); MEAN CORPUSCULAR VOLUME 87.3 fl (80.0-96.0); PLATELET COUNT, AUTOMATED 340 10^3/uL (150-450); RED BLOOD COUNT 3.53 10^6/uL (4.00-5.40); WHITE BLOOD COUNT 9.4 10^3/uL (4.0-10.0)
[2021-04-07 16:16] LABS: FREE T4 1.13 NG/DL (0.76-1.46); THYROID STIMULATING HORMONE 18.1 uIU/ML (0.358-3.740)
== END ==
LOC: M PLALAB 12:10
PROVIDERS: ATTEND Nurse Practitioner Family
DX: D50.9 Iron deficiency anemia, unspecified (principal)

== ENCOUNTER → 2021-05-16 | Outpatient (CLI) | payer OTHER ==
[~2021-05-16] MED LIST changes: +FERR32TA PO; +NAPR500T6 PO; +VENTAER INH
== END ==
LOC: M LABSMTC 13:34
PROVIDERS: ATTEND Anesthesiology
DX: Z01.812 Encounter for preprocedural laboratory examination (principal); Z20.822 Contact with and (suspected) exposure to COVID-19

== ENCOUNTER 2021-05-21 09:06 | Day surgery (SDC) | payer OTHER ==
[~2021-05-21] VITALS: Ht 157.5 cm; Wt 62.6 kg
[~2021-05-21 09:06] MED LIST changes: +LIDOCAINE 1% MDV 20ML VIAL SQ PRN
[2021-05-21] MEDS ORDERED: MIDAZOLAM INJ 2MG/2ML VIAL (J2250 PER 1MG) As Ordered ONE (09:17)
[2021-05-21] MEDS ORDERED: fentaNYL 100 MCG/2 ML INJECTION (J3010) As Ordered ONE ×2 (09:18→12:33)
[2021-05-21] MEDS ORDERED: LR 1,000 ML IV ONE (10:00)
[2021-05-21 10:39] LABS: HEMATOCRIT 29.6 % (36.0-47.0); HEMOGLOBIN 8.9 g/dl (12.0-15.5)
[2021-05-21] MEDS ORDERED: IBUP80TA PO (10:59)
[2021-05-21] MEDS ORDERED: ePHEDrine SULFATE 25 MG/5 ML(5MG/ML) SYRINGE As Ordered ONE (11:36)
[2021-05-21] MEDS ORDERED: PHENYLephrine 500MCG 5ML (100MCG/ML) SYRINGE As Ordered ONE ×2 (11:40→11:55)
[2021-05-21] MEDS ORDERED: propofoL 200 MG/20 ML VIAL As Ordered ONE ×2 (11:42→12:34)
[2021-05-21] MEDS ORDERED: ACETAMINOPHEN 1000MG 100ML IV BTL (OFIRMEV) (J0131 PER 10MG) As Ordered ONE (11:42)
[2021-05-21] MEDS ORDERED: LIDOCAINE 2% 100MG/5ML SDV (FOR ANES.) As Ordered ONE (11:42)
[2021-05-21] MEDS ORDERED: dexameTHASONE 4 MG/ML 1ML VIAL (J1100 PER 1MG) As Ordered ONE (11:43)
[2021-05-21] MEDS ORDERED: ONDANSETRON 4MG/2ML VIAL As Ordered ONE (11:44)
[2021-05-21] MEDS ORDERED: LR 1,000 ML IV SCH (13:05)
[2021-05-21] MEDS ORDERED: oxyCODONE 5MG TAB PO PRN (13:05)
[2021-05-21] MEDS ORDERED: fentaNYL 100 MCG/2 ML INJECTION (J3010) IV PRN (13:05)
[2021-05-21] MEDS ORDERED: ONDANSETRON 4MG/2ML VIAL IV PRN (13:05)
[2021-05-21] MEDS ORDERED: ALBUTEROL SULFATE 2.5 MG/0.5 ML INH NEB SOLN INH ONE (13:50)
[2021-05-21] MEDS ORDERED: KETOROLAC 30 MG/ML 1ML VIAL IV PRN (14:00)
[2021-05-21] MEDS ORDERED: METOCLOPRAMIDE INJ 10MG/2ML VIAL (J2765 PER 1) IV ONE (15:15)
[2021-05-21 15:40] VITALS: BP 140/72
--- NOTE | 2021-05-22 06:43 | RO ---
OPERATIVE NOTE DATE OF OPERATION: 05/21/2021 PREOPERATIVE DIAGNOSIS: Menorrhagia, dysfunctional uterine bleeding, anemia. POSTOPERATIVE DIAGNOSIS: Menorrhagia, dysfunctional uterine bleeding, anemia. OPERATION PERFORMED: Diagnostic hysteroscopy, D&C, NovaSure endometrial ablation. SURGEON: Rosina Salazar M.D. PONY ROLL FINISHER: None. ANESTHESIA: general LMA INDICATION FOR OPERATION: Nicole is a 46-year-old, G1, P1, who has had ongoing dysfunctional uterine bleeding, menorrhagia with resultant anemia. She had workup which included a normal endometrial biopsy but her ferritin was 9 and she was started on oral iron. Her pelvic ultrasound was essentially normal with endometrial lining of 0.6 cm. She was consulted on her options to treat her heavy bleeding and she opted for endometrial ablation. MATERIAL FORWARDED TO THE LAB: Endometrial curettings. DESCRIPTION OF FINDINGS: Cervical length 4 cm. Uterine length 5 cm. Uterine width 4.1 cm. NovSure power 113 miller, one minute, 34 seconds burn time. On hysteroscopy, there was abundant endometrial tissue. No mass observed. INFECTION CLASSIFICATION: 2. ESTIMATED BLOOD LOSS: 20 mL URINE OUTPUT: Not measured. IV FLUIDS: One liter of lactated Ringer's. DESCRIPTION OF OPERATION: After obtaining informed consent, the patient was taken to the operating room. She underwent general anesthesia with LMA. She was placed in low lithotomy position. Perineum and vagina were prepped and draped in sterile fashion. A sterile speculum was placed in the vagina and a single-tooth tenaculum was placed on the anterior aspect of the cervix. The uterus was sounded to 9 cm. The cervix was 4 cm and the uterine cavity 5 cm. The cervix was sequentially dilated with Hanks dilators. The hysteroscopy was performed and revealed proliferative appearing endometrium. It was hard to obtain a good view of the cavity given all of the fluffy endometrium but there was no discrete mass noted and no abnormalities of the cavity itself. The hysteroscope was removed. I performed a sharp curetting of the uterus after the hysteroscopy so that there would be a better burn result from the NovaSure, and there was abundant tissue retrieved which was sent to pathology. The NovaSure device was inserted to the uterine cavity. Once deployed, the width measured 4.1 cm. Power setting was 113 miller and the device was activated. Procedure terminated after one minute, 34 seconds without complication. The device was removed followed by the tenaculum. Hemostasis was noted and the speculum was removed. There was nothing retained in the vagina. The patient was transferred to the recovery room in good condition after awakening. All counts were correct x2. MTDD
== END 2021-05-21 15:50 | disposition home or self-care (01) ==
LOC: M SDC 09:06
PROVIDERS: ATTEND Obstetrics & Gynecology
DX: N85.01 Benign endometrial hyperplasia (principal); N92.6 Irregular menstruation, unspecified; E03.9 Hypothyroidism, unspecified; E78.5 Hyperlipidemia, unspecified; M79.7 Fibromyalgia; J45.909 Unspecified asthma, uncomplicated; R51.9 Headache, unspecified; G47.33 Obstructive sleep apnea (adult) (pediatric); Z87.891 Personal history of nicotine dependence; Z79.891 Long term (current) use of opiate analgesic; Z79.51 Long term (current) use of inhaled steroids; Z91.018 Allergy to other foods
CPT/HCPCS: 36415; 58563; 84702; 85014; 85018; 86850; 86900; 86901; 88305; J0131; J1100; J1885; J2250; J2370; J2405; J2765; J3010

== ENCOUNTER → 2021-06-13 | Outpatient (CLI) | payer OTHER ==
[~2021-06-13] MED LIST changes: +IBUP80TA PO; -LIDOCAINE 1% MDV 20ML VIAL SQ PRN
== END ==
LOC: M LABSMTC 09:48
PROVIDERS: ATTEND Pediatrics
DX: Z11.52 Encounter for screening for COVID-19 (principal)
CPT/HCPCS: C9803; U0003

== ENCOUNTER → 2021-07-07 | Outpatient (CLI) | payer OTHER ==
[2021-07-07 19:50] LABS: HEMATOCRIT 33.5 % (36.0-47.0); MEAN CORPUSCULAR HEMOGLOBIN 22.8 pg (27.0-33.0); MEAN CORPUSCULAR HGB CONC 29.9 g/dl (32.0-36.5); MEAN CORPUSCULAR VOLUME 76.3 fl (80.0-96.0); PLATELET COUNT, AUTOMATED 385 10^3/uL (150-450); RED BLOOD COUNT 4.39 10^6/uL (4.00-5.40); WHITE BLOOD COUNT 12.7 10^3/uL (4.0-10.0)
[2021-07-07 20:09] LABS: THYROID STIMULATING HORMONE 20.8 uIU/ML (0.358-3.740)
== END ==
LOC: M WUC 15:38
PROVIDERS: ATTEND Family Medicine
DX: D50.8 Other iron deficiency anemias (principal); E03.9 Hypothyroidism, unspecified

== ENCOUNTER → 2021-08-27 | Outpatient (REF) | payer OTHER ==
[~2021-08-27] MED LIST changes: -IBUP200T45 PO; +IBUP200T46 PO
== END ==
LOC: M SFHCPLAZ 12:44
PROVIDERS: ATTEND Physician Assistant
DX: R05.9 Cough, unspecified (principal)

== ENCOUNTER → 2021-09-17 | Outpatient (CLI) | payer OTHER | LOC: M LABSMTC 12:32 | PROVIDERS: ATTEND Pediatrics | DX: Z11.52 Encounter for screening for COVID-19 (principal) ==

== ENCOUNTER → 2022-01-02 | Outpatient (CLI) | payer OTHER | LOC: M SLEEP 20:00 | PROVIDERS: ATTEND Nurse Practitioner Family | DX: G47.33 Obstructive sleep apnea (adult) (pediatric) (principal) ==

== ENCOUNTER → 2022-04-24 | Outpatient (CLI) | payer OTHER ==
[2022-04-24 17:12] LABS: BASO % 0.3 % (0.0-1.0); EOS # 0.2 10^3/uL (0.0-0.5); EOS % 1.6 % (0.0-3.0); HEMATOCRIT 36.8 % (36.0-47.0); HEMOGLOBIN 11.6 g/dl (12.0-15.5); LYMPH # 2.2 10^3/uL (1.5-5.0); LYMPH % 21.8 % (24.0-44.0); MEAN CORPUSCULAR HEMOGLOBIN 26.2 pg (27.0-33.0); MEAN CORPUSCULAR HGB CONC 31.5 g/dl (32.0-36.5); MEAN CORPUSCULAR VOLUME 83.1 fl (80.0-96.0); MONO # 0.7 10^3/uL (0.0-0.8); MONO % 6.6 % (2.0-8.0); NEUTROPHILS # 6.9 10^3/uL (1.5-8.5); NEUTROPHILS % 68.9 % (36.0-66.0); PLATELET COUNT, AUTOMATED 298 10^3/uL (150-450); RED BLOOD COUNT 4.43 10^6/uL (4.00-5.40)
[2022-04-24 18:03] LABS: ALBUMIN 3.6 GM/DL (3.2-5.2); BILIRUBIN,TOTAL 0.2 MG/DL (0.2-1.0); CALCIUM LEVEL 9.5 MG/DL (8.5-10.1); CHOLESTEROL RISK RATIO 4.931 (<5); CREATININE FOR GFR 1.1 MG/DL (0.55-1.30); FREE T4 1.07 NG/DL (0.76-1.46); GLOMERULAR FILTRATION RATE 57.2 (>58); THYROID STIMULATING HORMONE 2.2 uIU/ML (0.358-3.740); TOTAL PROTEIN 7.2 GM/DL (6.4-8.2)
[2022-04-24 18:28] LABS: TOTAL 25(OH) VITAMIN D 18.9 NG/ML (30.0-100.0)
== END ==
LOC: M PLALAB 15:13
PROVIDERS: ATTEND Physician Assistant
DX: Z00.00 Encounter for general adult medical examination without abnormal findings (principal); E03.9 Hypothyroidism, unspecified; E78.2 Mixed hyperlipidemia; F41.8 Other specified anxiety disorders; D50.8 Other iron deficiency anemias

== ENCOUNTER → 2022-04-28 | Outpatient (REF) | payer OTHER ==
[2022-04-29 10:55] LABS: AMORPHOUS SEDIMENT LARGE (NEGATIVE); APPEARANCE, URINE TURBID (CLEAR); BACTERIA, URINE AUTO NEGATIVE (NEGATIVE); BILIRUBIN, URINE AUTO NEGATIVE (NEGATIVE); BLOOD, URINE BLOOD 1+ (NEGATIVE); COLOR, URINE YELLOW (YELLOW); GLUCOSE, URINE (UA) AUTO NEGATIVE (NEGATIVE); KETONE, URINE AUTO TRACE mg/dL (NEGATIVE); LEUKOCYTE ESTERASE, URINE AUTO NEGATIVE (NEGATIVE); MUCUS, URINE SMALL (NEGATIVE); NITRITE, URINE AUTO NEGATIVE (NEGATIVE); PROTEIN, URINE AUTO NEGATIVE (NEGATIVE); RBC, URINE AUTO 0 /HPF (0-3); SPECIFIC GRAVITY URINE AUTO 1.021 (1.002-1.035); SQUAMOUS EPITHELIAL CELL UR AU 0 /HPF (0-6); UROBILINOGEN, URINE AUTO 0.2 mg/dL (0.0-2.0); WBC, URINE AUTO 0 /HPF (0-3)
== END ==
LOC: M SFHCPLAZ 10:04
PROVIDERS: ATTEND Physician Assistant
DX: R39.15 Urgency of urination (principal)

== ENCOUNTER → 2022-05-12 | Outpatient (CLI) | payer OTHER | LOC: M RAD 11:38 | PROVIDERS: ATTEND Physician Assistant | DX: M54.9 Dorsalgia, unspecified (principal) ==

== ENCOUNTER 2022-06-09 14:20 | Outpatient (RCR) | payer OTHER | END 2022-06-10 | LOC: M PT 14:20 | PROVIDERS: ATTEND Physician Assistant | DX: M54.42 Lumbago with sciatica, left side (principal) ==

== ENCOUNTER → 2022-08-03 | Outpatient (REF) | payer OTHER | LOC: M SFHCPLAZ 16:48 | PROVIDERS: ATTEND Physician Assistant | DX: J06.9 Acute upper respiratory infection, unspecified (principal) ==

== ENCOUNTER → 2022-10-21 | Outpatient (REF) | payer OTHER | LOC: M SFHCPLAZ 10:06 | PROVIDERS: ATTEND Physician Assistant | DX: J06.9 Acute upper respiratory infection, unspecified (principal) ==

== ENCOUNTER → 2023-01-11 | Outpatient (REF) | payer OTHER | LOC: M SFHCPLAZ 17:27 | PROVIDERS: ATTEND Physician Assistant | DX: R05.1 Acute cough (principal) ==

== ENCOUNTER → 2023-04-16 | Outpatient (CLI) | payer OTHER ==
[2023-04-16 14:00] LABS: BASO % 0.5 % (0.0-1.0); EOS # 0.4 10^3/uL (0.0-0.5); EOS % 4.8 % (0.0-3.0); HEMATOCRIT 40.9 % (36.0-47.0); HEMOGLOBIN 12.9 g/dl (12.0-15.5); LYMPH % 22.7 % (24.0-44.0); MEAN CORPUSCULAR HEMOGLOBIN 27.1 pg (27.0-33.0); MEAN CORPUSCULAR HGB CONC 31.5 g/dl (32.0-36.5); MEAN CORPUSCULAR VOLUME 85.9 fl (80.0-96.0); MONO # 0.7 10^3/uL (0.0-0.8); MONO % 7.4 % (2.0-8.0); NEUTROPHILS # 5.6 10^3/uL (1.5-8.5); PLATELET COUNT, AUTOMATED 294 10^3/uL (150-450); RED BLOOD COUNT 4.76 10^6/uL (4.00-5.40); WHITE BLOOD COUNT 8.8 10^3/uL (4.0-10.0)
[2023-04-16 14:29] LABS: ALBUMIN 3.3 G/DL (3.2-5.2); ALKALINE PHOSPHATASE 97 U/L (46-116); ALT/SGPT 10 U/L (7.0-40); AST/SGOT < 8 U/L (<34); BILIRUBIN,TOTAL 0.4 MG/DL (0.3-1.2); BLOOD UREA NITROGEN 14 MG/DL (9-23); CALCIUM LEVEL 10.1 MG/DL (8.5-10.1); CARBON DIOXIDE LEVEL 28 MMOL/L (20-31); CHLORIDE LEVEL 103 MMOL/L (98-107); CHOLESTEROL LEVEL 207 MG/DL (<200); CHOLESTEROL RISK RATIO 4.34 (<5); CREATININE FOR GFR 0.91 MG/DL (0.55-1.30); FERRITIN 39.8 NG/ML (7.3-270.7); FREE T4 1.65 NG/DL (0.89-1.76); GLOMERULAR FILTRATION RATE > 60.0 (>58); GLUCOSE, FASTING 74 MG/DL (60-100); HDL CHOLESTEROL 47.6 MG/DL (>40); LDL CHOLESTEROL 118.8 MG/DL (<100); NON-HDL-C 159.4 MG/DL; POTASSIUM SERUM 4.8 MMOL/L (3.5-5.1); SODIUM LEVEL 138 MMOL/L (136-145); THYROID STIMULATING HORMONE 0.039 uIU/ML (0.55-4.78); TOTAL 25(OH) VITAMIN D 28.2 NG/ML (20.0-100.0); TOTAL PROTEIN 6.8 G/DL (5.7-8.2); TRIGLYCERIDES LEVEL 203 MG/DL (<150)
[2023-04-16 14:30] LABS: HEMOGLOBIN A1c 4.9 % (4.0-6.0); VITAMIN B12 LEVEL 321 PG/ML (211-911)
== END ==
LOC: M PLALAB 10:26
PROVIDERS: ATTEND Physician Assistant
DX: E03.9 Hypothyroidism, unspecified (principal)

== ENCOUNTER → 2023-06-02 | Outpatient (REF) | payer OTHER | LOC: M SFHCWAGY 13:43 | PROVIDERS: ATTEND Nurse Practitioner Family | DX: Z12.4 Encounter for screening for malignant neoplasm of cervix (principal); R87.610 Atypical squamous cells of undetermined significance on cytologic smear of cervix (ASC-US) ==

== ENCOUNTER → 2023-11-23 | Outpatient (REF) | payer OTHER | LOC: M SFHCPLAZ 10:15 | PROVIDERS: ATTEND Physician Assistant | DX: R05.1 Acute cough (principal) ==

== ENCOUNTER 2024-03-21 15:08 | Emergency (ER) | payer OTHER ==
[~2024-03-21] VITALS: Ht 157.5 cm; Wt 133.9 kg
[2024-03-21] MEDS ORDERED: LEVO175T2 (15:23)
[2024-03-21 16:17] LABS: BASO % 0.3 % (0.0-1.0); EOS # 0.3 10^3/uL (0.0-0.5); EOS % 3.4 % (0.0-3.0); HEMATOCRIT 41.6 % (36.0-47.0); HEMOGLOBIN 13.6 g/dl (12.0-15.5); LYMPH % 21.3 % (24.0-44.0); MEAN CORPUSCULAR HEMOGLOBIN 28.6 pg (27.0-33.0); MEAN CORPUSCULAR HGB CONC 32.7 g/dl (32.0-36.5); MEAN CORPUSCULAR VOLUME 87.4 fl (80.0-96.0); MONO # 0.6 10^3/uL (0.0-0.8); MONO % 6.2 % (2.0-8.0); NEUTROPHILS # 6.2 10^3/uL (1.5-8.5); NEUTROPHILS % 68.4 % (36.0-66.0); PLATELET COUNT, AUTOMATED 283 10^3/uL (150-450); RED BLOOD COUNT 4.76 10^6/uL (4.00-5.40); WHITE BLOOD COUNT 9.1 10^3/uL (4.0-10.0)
[2024-03-21 16:32] LABS: INR 0.98; PROTHROMBIN TIME 12.7 SECONDS (12.5-14.5)
[2024-03-21 16:42] LABS: BLOOD UREA NITROGEN 17 MG/DL (9-23); CALCIUM LEVEL 9.2 MG/DL (8.5-10.1); CARBON DIOXIDE LEVEL 29 MMOL/L (20-31); CHLORIDE LEVEL 107 MMOL/L (98-107); GLOMERULAR FILTRATION RATE > 60.0 (>58); GLUCOSE, FASTING 83 MG/DL (60-100); POTASSIUM SERUM 4.3 MMOL/L (3.5-5.1); SODIUM LEVEL 140 MMOL/L (136-145)
[2024-03-21 16:50] LABS: HCG, SERUM QUALITATIVE NEGATIVE (NEGATIVE)
[2024-03-21 18:30] VITALS: BP 143/88; TEMP 97; O2SAT 98
== END 2024-03-21 18:48 | disposition home or self-care (01) ==
LOC: M ED 15:08
DX: N93.9 Abnormal uterine and vaginal bleeding, unspecified (principal); N83.292 Other ovarian cyst, left side; Z91.018 Allergy to other foods; Z79.51 Long term (current) use of inhaled steroids; Z79.899 Other long term (current) drug therapy

== ENCOUNTER → 2024-04-18 | Outpatient (CLI) | payer OTHER ==
[~2024-04-18] MED LIST changes: +LEVO175T2
== END ==
LOC: M WUC 08:31
PROVIDERS: ATTEND Physician Assistant
DX: L03.031 Cellulitis of right toe (principal); S90.31XA Contusion of right foot, initial encounter; W18.30XA Fall on same level, unspecified, initial encounter; Y92.009 Unspecified place in unspecified non-institutional (private) residence as the place of occurrence of the external cause

== ENCOUNTER → 2024-07-11 | Outpatient (REF) | payer OTHER | LOC: M SFHCPLAZ 16:52 | PROVIDERS: ATTEND Physician Assistant Medical | DX: J06.9 Acute upper respiratory infection, unspecified (principal) ==

== ENCOUNTER 2024-09-27 06:44 | Day surgery (SDC) | payer OTHER ==
[~2024-09-27] VITALS: Ht 157.5 cm; Wt 127.0 kg
[~2024-09-27 06:44] MED LIST changes: -CETI-24; +CETI-24 PO; -LEVO175T2; +LEVO175T2 PO; +NAPR-1405 PO; -NAPR500T6 PO
[2024-09-27] MEDS ORDERED: propofoL 200 MG/20 ML VIAL As Ordered ONE (06:57)
[2024-09-27] MEDS ORDERED: dexmedeTOMIDine (4MCG/ML)200MCG/50ML BTL (PRECEDEX) As Ordered ONE (06:57)
[2024-09-27] MEDS ORDERED: LIDOCAINE 2% MDV 20ML VIAL As Ordered ONE (06:58)
[2024-09-27 07:47] VITALS: TEMP 97.5
[2024-09-27 08:11] VITALS: BP 148/71; O2SAT 97
== END 2024-09-27 08:18 | disposition home or self-care (01) ==
LOC: M OPP 06:44
PROVIDERS: ATTEND Surgery
DX: Z12.11 Encounter for screening for malignant neoplasm of colon (principal); K64.0 First degree hemorrhoids; K44.9 Diaphragmatic hernia without obstruction or gangrene; K29.70 Gastritis, unspecified, without bleeding; E78.5 Hyperlipidemia, unspecified; E03.9 Hypothyroidism, unspecified; K21.9 Gastro-esophageal reflux disease without esophagitis; M79.7 Fibromyalgia; G43.909 Migraine, unspecified, not intractable, without status migrainosus; J45.909 Unspecified asthma, uncomplicated; G47.33 Obstructive sleep apnea (adult) (pediatric); Z99.89 Dependence on other enabling machines and devices; Z91.018 Allergy to other foods; Z79.890 Hormone replacement therapy; Z79.899 Other long term (current) drug therapy

== ENCOUNTER → 2025-02-17 | Outpatient (CLI) | payer OTHER ==
[2025-02-17 10:17] LABS: HEMATOCRIT 36.7 % (36.0-47.0); HEMOGLOBIN 12.1 g/dl (12.0-15.5); MEAN CORPUSCULAR HEMOGLOBIN 29.5 pg (27.0-33.0); MEAN CORPUSCULAR VOLUME 89.5 fl (80.0-96.0); PLATELET COUNT, AUTOMATED 251 10^3/uL (150-450)
[2025-02-17 10:45] LABS: CHOLESTEROL RISK RATIO 4.25 (<5); HDL CHOLESTEROL 43.2 MG/DL (>40); LDL CHOLESTEROL 92.6 MG/DL (<100); NON-HDL-C 140.8 MG/DL; PERCENT SATURATION 19.9 % (13.2-45.0)
[2025-02-17 10:46] LABS: FERRITIN 50.1 NG/ML (7.3-270.7); THYROID STIMULATING HORMONE 0.267 uIU/ML (0.55-4.78); TOTAL 25(OH) VITAMIN D 15.1 NG/ML (20.0-100.0)
[2025-02-17 10:47] LABS: FOLATE 12.4 NG/ML (>5.4)
[2025-02-17 10:48] LABS: FREE T4 1.53 NG/DL (0.89-1.76)
== END ==
LOC: M LAB 09:39
PROVIDERS: ATTEND Nurse Practitioner Family
DX: E03.9 Hypothyroidism, unspecified (principal); E55.9 Vitamin D deficiency, unspecified; D50.8 Other iron deficiency anemias; E78.2 Mixed hyperlipidemia

== ENCOUNTER → 2025-06-27 | Outpatient (CLI) | payer OTHER ==
[2025-06-27 17:52] LABS: FREE T4 1.18 NG/DL (0.89-1.76); TOTAL 25(OH) VITAMIN D 23.3 NG/ML (20.0-100.0)
== END ==
LOC: M PLALAB 15:44
PROVIDERS: ATTEND Nurse Practitioner Family
DX: E03.9 Hypothyroidism, unspecified (principal); E55.9 Vitamin D deficiency, unspecified